=== PATIENT | female | born 1935 | race Caucasian/White ===

== ENCOUNTER 2020-01-12 08:41 | Outpatient (REF) | payer MEDICARE, OTHER, SELFPAY ==
[2020-01-12 10:17] LABS: MANUAL DIFF FLAG NO
[2020-01-12 10:22] LABS: Basophils Percent Auto 0.6 % (0-2); Eosinophils Absolute Auto 0.3 X10*3/uL (0.0-0.4); Eosinophils Percent Auto 5.2 % (0-4); Hemoglobin 12.4 g/dl (12.0-16.0); Imm Gran Abs Auto 0.02 X10*3/uL (0.00-0.03); Imm Gran Pct Auto 0.3 % (0.0-0.4); Lymphocytes Absolute Auto 2.1 X10*3/uL (1.2-4.9); Lymphocytes Percent Auto 32.5 % (20-40); Mean Corpuscular HGB Conc 33.5 g/dl (31.0-35.0); Mean Corpuscular Hemoglobin 31.6 pg (27.0-33.0); Mean Corpuscular Volume 94.4 fL (80-98); Mean Platelet Volume 10.7 fL (9.4-12.3); Monocytes Absolute Auto 0.6 X10*3/uL (0.1-1.2); Monocytes Percent Auto 9.8 % (2-11); Neutrophils Absolute Auto 3.4 X10*3/uL (2.0-8.3); Neutrophils Percent Auto 51.6 % (45-73); Platelet Count 190 X10*3/uL (160-400); Red Blood Count 3.92 X10*6/uL (4.20-5.50); Red Cell Distribution Width 12.1 % (11.0-16.0); White Blood Count 6.5 X10*3/uL (4.8-10.8)
[2020-01-12 10:36] LABS: Estimated Average Glucose 111 mg/dL; Hemoglobin A1c % 5.5 %
[2020-01-12 10:48] LABS: Alanine Aminotransferase 14 U/L (0-31); Albumin Level 4.1 g/dL (3.5-5.0); Alkaline Phosphatase 58 U/L (39-117); Anion Gap 13 (12-20); Aspartate Amino Transferase 14 U/L (5-31); Bilirubin Total 0.8 mg/dL (0.0-1.0); Blood Urea Nitrogen 22 mg/dL (9-16); Calcium 8.9 mg/dL (8.4-10.2); Carbon Dioxide 24 mmol/L (22-29); Chloride 109 mmol/L (96-108); Cholesterol 172 mg/dL; Estimated Glomerular Filt Rate 52; Glucose Fasting 90 mg/dL (60-99); HDL Cholesterol 40 mg/dL; LDL Cholesterol Calculated 84 mg/dl; Potassium 4.6 mmol/l (3.3-5.1); Sodium 141 mmol/L (135-145); Total Protein 6.6 g/dL (6.5-8.0); Triglycerides 241 mg/dL
== END 2020-01-12 08:42 | disposition home or self-care (01) ==
LOC: HO.10HDL 08:41
PROVIDERS: Visit Provider Physician Assistant
DX: E78.2 Mixed hyperlipidemia (principal); I10 Essential (primary) hypertension
CPT/HCPCS: 36415; 80053; 80061; 83036; 84443; 85025

== ENCOUNTER 2020-11-29 08:28 | Outpatient (REF) | payer MEDICARE, OTHER, SELFPAY ==
[2020-11-29 08:56] LABS: Hematocrit 37.7 % (37-47); Hemoglobin 12.7 g/dl (12.0-16.0); Mean Corpuscular HGB Conc 33.7 g/dl (31.0-35.0); Mean Corpuscular Hemoglobin 31.2 pg (27.0-33.0); Mean Corpuscular Volume 92.6 fL (80-98); Platelet Count 186 X10*3/uL (160-400); Red Blood Count 4.07 X10*6/uL (4.20-5.50); Red Cell Distribution Width 12.4 % (11.0-16.0); White Blood Count 6.2 X10*3/uL (4.8-10.8)
[2020-11-29 09:19] LABS: Alanine Aminotransferase 11 U/L (0-31); Albumin Level 4.3 g/dL (3.5-5.0); Alkaline Phosphatase 68 U/L (39-117); Anion Gap 13 (12-20); Aspartate Amino Transferase 13 U/L (5-31); Bilirubin Total 0.8 mg/dL (0.0-1.0); Blood Urea Nitrogen 13 mg/dL (9-16); Calcium 9.8 mg/dL (8.4-10.2); Carbon Dioxide 25 mmol/L (22-29); Chloride 109 mmol/L (96-108); Cholesterol 177 mg/dL; Estimated Glomerular Filt Rate 50; Glucose Fasting 98 mg/dL (60-99); HDL Cholesterol 43 mg/dL; LDL Cholesterol Calculated 99 mg/dl; Potassium 4.4 mmol/L (3.3-5.1); Sodium 143 mmol/L (135-145); Total Protein 7.1 g/dL (6.5-8.0); Triglycerides 176 mg/dL
[2020-11-29 09:39] LABS: TSH reflex Free T4 3.02 uIU/mL (0.32-4.0)
[2020-11-29 18:28] LABS: Creatinine Urine 236.82 mg/dL
== END 2020-11-29 08:29 | disposition home or self-care (01) ==
LOC: HO.LAB 08:28
PROVIDERS: PCP Physician Assistant; Visit Provider Physician Assistant
DX: I10 Essential (primary) hypertension (principal)
CPT/HCPCS: 36415; 80053; 80061; 82043; 84443; 85027

== ENCOUNTER → 2021-02-09 13:36 | Outpatient (REF) | payer MEDICARE, OTHER, SELFPAY ==
--- NOTE | 2021-02-09 13:44 | CA_ITS ---
Transthoracic Echocardiogram Patient (Last, First, Middle): Tatiana Bell G Gender: Female Date of : 1935 Age: 86 Procedure Date: 02/09/2021 Procedure Type: Transthoracic Echocardiogram Location: OP Height: 160.02 cm Weight: 104.33 kg BSA: 2.05 m2 Heart Rate: bpm BP: 122 / 80 mmHg High School History Teacher: COLLIN Polanco MD: Mark Ribeiro PA-C Drafting Engineer: Vernon Schultz MD Symptoms: R01.1 - Cardiac murmur, unspecified Study Quality: Fair ECG Rhythm: Sinus Conclusions: - 1. Normal LV systolic function with impaired relaxation filling pattern 2. Mild aortic regurgitation with fibrocalcific aortic valve changes 3. Normal RVSP 4. No pericardial effusion Findings Left Ventricle Normal left ventricular size, thickness, and systolic function. The visually estimated ejection fraction is between 55-60%. Spectral Doppler is indicative of an impaired relaxation filling pattern. E/E prime ratio is <8, consistent with normal filling pressures. Right Ventricle Normal right ventricular cavity size and systolic function. Atria The left atrium is mildly dilated. Interatrial shunt cannot be excluded. The right atrium is normal in size. Aortic Valve There is mild calcification of the aortic valve. There is mild thickening of the aortic valve. There is no aortic valve stenosis. There is mild aortic valve regurgitation. Mitral Valve There is moderate anterior and posterior mitral leaflet thickening. There is moderate mitral annular calcification. There is trace mitral valve regurgitation. There is no mitral valve stenosis. Pulmonic Valve The pulmonic valve was not well visualized. Tricuspid Valve Likely normal tricuspid valve structure and function. There is trace tricuspid valve regurgitation. The right ventricular systolic pressure is normal. The right ventricular systolic pressure is 16 mmHg. Normal right atrial pressure. There is no evidence of pulmonary hypertension. Great Vessels There is mild dilatation of the ascending aorta measuring 4.00 cm. Venous The inferior vena cava is normal in size and collapses greater than 50% with inspiration. Pericardium/Pleural There is no evidence of pericardial effusion. Prior Study Comparison No previous study in last 5 years for comparison Measurements 2D Linear Measurements IVSd: 1.13 0.6-0.9/0.6-1.0 cm LVIDd: 4.51 3.9-5.3/4.2-5.9 cm LVIDd Index: 2.20 2.4-3.2/2.2-3.1 cm/m2 LVIDs: 3.05 2.0-3.6 cm LVPWd: 1.08 0.7-1.1 cm Ao Root: 3.80 2.1-3.5 cm LA Diam: 3.90 2.7-3.8/3.0-4.0 cm LAIDs Index: 1.90 1.5-2.3 cm/m2 LV Mass: 220.20 67-162/88-224 g LV Mass Index: 107.41 43-95/49-115 g/m2 LVOT Diam: 2.30 3.0+(-)1.3 cm 2D Systolic Function EF 4C: 57.10 >55% EF 2C: 51.40 >55% EF BiP: 55.70 >55% Mitral Valve MV Pk E: 0.55 MV PK A: 0.84 MV Decel Time: 280.00 E/A: 0.70 E'Lateral: 5.77 E'Medial: 4.57 E/E' Med: 12.00 E/E' Lat: 9.50 PHT: 82.00 MVA PHT: 2.68 Decel Vigo: 1.96 Aortic Valve AoV Pk Brandt: 1.72 AoV Mn Brandt: 1.13 AoV VTI: 0.40 AoV Pk Grad: 12.00 Aov Mn Grad: 6.00 PASTORA Cont.VTI: 2.66 AI Pk Brandt: 3.26 AI Vigo: 2.77 LVOT LVOT Pk Brandt: 1.12 LVOT Mn Brandt: 0.80 LVOT VTI: 0.26 LVOT Pk Grad: 5.00 LVOT Mn Grad: 3.00 LVOT Diam: 2.30 LVOT Area: 4.15 Diastolic Function MV Pk E: 0.55 MV Pk A: 0.84 E/A: 0.70 E'Medial: 4.57 E/E' Med: 12.00 E' Laterial: 5.77 E/E' Lat: 9.50 Right Ventricle TAPSE (mm): 2.07 TVS' Brandt: 12.80 Tricuspid Valve TR Pk Brandt: 1.79 TR Pk Grad: 13.00 RA Press: 3.00 RVSP: 16.00 Great Vessels Aorta Ao Root-2D: 3.80 2.0-3.7 cm Ao Asc: 4.00 2.1-3.4 cm Updated in Other Vendor System with Status of Final Vernon Schultz MD electronically signed on 02/09/2021 3:36:40 PM with status of Final
== END ==
LOC: HO.CARD 13:36
PROVIDERS: Visit Provider Physician Assistant
DX: R01.1 Cardiac murmur, unspecified (principal)
CPT/HCPCS: 93306

== ENCOUNTER 2021-05-15 08:37 | Outpatient (REF) | payer MEDICARE, OTHER, SELFPAY ==
[2021-05-15 10:46] LABS: Hematocrit 38.8 % (37.0-47.0); Hemoglobin 12.6 g/dl (12.0-16.0); Mean Corpuscular HGB Conc 32.5 g/dl (31.0-35.0); Mean Corpuscular Volume 95.3 fL (80.0-98.0); Mean Platelet Volume 10.7 fL (9.4-12.3); Platelet Count 182 X10*3/uL (160-400); Red Blood Count 4.07 X10*6/uL (4.20-5.50); Red Cell Distribution Width 12.9 % (11.0-16.0); White Blood Count 6.3 X10*3/uL (4.8-10.8)
[2021-05-15 11:02] LABS: Alanine Aminotransferase 13 U/L (0-31); Albumin Level 4.2 g/dL (3.5-5.0); Alkaline Phosphatase 63 U/L (39-117); Anion Gap 10 (12-20); Aspartate Amino Transferase 10 U/L (5-31); Bilirubin Total 0.6 mg/dL (0.0-1.0); Blood Urea Nitrogen 23 mg/dL (9-16); Calcium 10.1 mg/dL (8.4-10.2); Carbon Dioxide 26 mmol/L (22-29); Chloride 110 mmol/L (96-108); Cholesterol 175 mg/dL; Estimated Glomerular Filt Rate 48; Glucose Fasting 97 mg/dL (60-99); HDL Cholesterol 44 mg/dL; LDL Cholesterol Calculated 94 mg/dl; Potassium 4.4 mmol/L (3.3-5.1); Sodium 142 mmol/L (135-145); Total Protein 6.9 g/dL (6.5-8.0); Triglycerides 187 mg/dL
== END 2021-05-15 08:38 | disposition home or self-care (01) ==
LOC: HO.10HDL 08:37
PROVIDERS: Visit Provider Physician Assistant
DX: I10 Essential (primary) hypertension (principal); E78.2 Mixed hyperlipidemia
CPT/HCPCS: 36415; 80053; 80061; 85027

== ENCOUNTER 2021-05-24 13:08 | Outpatient (REF) | payer MEDICARE, OTHER, SELFPAY ==
--- NOTE | ~2021-05-24 | MM_ITS ---
EXAMINATION: MM SCREENING DIGITAL BREAST TOMOSYNTHESIS, BILATERAL CLINICAL INFORMATION: Screening. Asymptomatic. Age 86. Due for yearly. COMPARISON: Mammography: 01/16/2018, 07/03/2016, 05/16/2015 TECHNIQUE: Digital breast tomosynthesis is performed in both the craniocaudal and mediolateral oblique views along with computer-aided detection (CAD). Synthesized 2D images are generated from the tomosynthesis. FINDINGS: There are scattered areas of fibroglandular density (ACR BI-RADS breast composition Category b). There are no significant masses, abnormal calcifications, or other abnormalities. Parenchymal pattern is similar to prior exams. There are dermal lesions overlying the anterior left breast, upper outer right breast and inferior right breast. MM/MM tomosynthesis screening BI IMPRESSION: No mammographic evidence of malignancy. ASSESSMENT: BI-RADS 2: Benign RECOMMENDATION: Routine annual mammography screening. This patient's information was entered into a reminder system with a target due date for their next mammogram.
== END 2021-05-24 13:09 | disposition home or self-care (01) ==
LOC: HO.MAMMO 13:08
PROVIDERS: Visit Provider Physician Assistant
DX: Z12.31 Encounter for screening mammogram for malignant neoplasm of breast (principal)
CPT/HCPCS: 77063; 77067

== ENCOUNTER 2021-07-14 07:49 | Outpatient (REF) | payer MEDICARE, OTHER, SELFPAY ==
--- NOTE | ~2021-07-14 | XR_ITS ---
EXAMINATION: XR KNEE, BILATERAL XR KNEE, LEFT CLINICAL INFORMATION: Pain COMPARISON: 07/03/2016 TECHNIQUE: AP standing view of both knees. Lateral and sunrise views of the left knee. FINDINGS: Left knee: No fracture or subluxation. There is moderate narrowing of the patellofemoral compartment. Prominent marginal osteophytes of the patellofemoral compartment with small medial compartment osteophytes. No joint effusion. The appearance has progressed from 2017. Right knee: No fracture or subluxation. There is mild medial compartment joint space narrowing. Small marginal osteophytes of the medial and lateral compartments. 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 Mild medial compartment narrowing with osteophytes of the right knee.
--- NOTE | ~2021-07-14 | XR_ITS ---
EXAMINATION: XR KNEE, BILATERAL XR KNEE, LEFT CLINICAL INFORMATION: Pain COMPARISON: 07/03/2016 TECHNIQUE: AP standing view of both knees. Lateral and sunrise views of the left knee. FINDINGS: Left knee: No fracture or subluxation. There is moderate narrowing of the patellofemoral compartment. Prominent marginal osteophytes of the patellofemoral compartment with small medial compartment osteophytes. No joint effusion. The appearance has progressed from 2017. Right knee: No fracture or subluxation. There is mild medial compartment joint space narrowing. Small marginal osteophytes of the medial and lateral compartments. XR/XR knee standing BI IMPRESSION: Moderate degenerative changes of the left knee patellofemoral compartment which have progressed from prior. Mild medial compartment narrowing with osteophytes of the right knee.
== END 2021-07-14 07:50 | disposition home or self-care (01) ==
LOC: HO.HOSX 07:49
PROVIDERS: Visit Provider Orthopaedic Surgery
DX: M17.0 Bilateral primary osteoarthritis of knee (principal)
CPT/HCPCS: 20610; 73560; 73565; 99202; J1100

== ENCOUNTER 2021-09-19 08:44 | Outpatient (REF) | payer MEDICARE, OTHER, SELFPAY | END 2021-09-19 08:45 | disposition home or self-care (01) | LOC: HO.LAB 08:44 | PROVIDERS: Visit Provider Obstetrics & Gynecology | DX: N90.9 Noninflammatory disorder of vulva and perineum, unspecified (principal); Z90.710 Acquired absence of both cervix and uterus | CPT/HCPCS: 56605; 88305; 99202 ==

== ENCOUNTER 2021-10-10 12:21 | Emergency (ER) | payer MEDICARE, OTHER, SELFPAY ==
--- NOTE | ~2021-10-10 | XR_ITS ---
EXAMINATION: XR CHEST CLINICAL INFORMATION: Chest pain radiating to back. COMPARISON: 06/12/2017 chest radiographs. TECHNIQUE: 2 views of the chest were obtained. FINDINGS: The lungs are clear. There are no pleural effusions. The heart and mediastinal structures are unremarkable XR/XR chest 2V IMPRESSION: No acute cardiopulmonary process.
[2021-10-10 12:31] VITALS: BP 152/67; PULSE 65; RESP 18; TEMP 36.9; O2SAT 98; BMI 40.4
--- NOTE | 2021-10-10 12:32 | ECG_ITS ---
Test Reason : CP Blood Pressure : / mmHG Vent. Rate : 062 BPM Atrial Rate : 062 BPM P-R Int : 186 ms QRS Dur : 094 ms QT Int : 406 ms P-R-T Axes : 016 -37 003 degrees QTc Int : 412 ms Normal sinus rhythm with sinus arrhythmia Left axis deviation Moderate voltage criteria for LVH, may be normal variant ( R in aVL , Rick product ) Nonspecific T wave abnormality Abnormal ECG When compared with ECG of 11-JUN-2017 15:52, No significant change was found Referred By: Generic ED Physician Electronically Signed By:CAROL LOVE
[2021-10-10 12:58] VITALS: BP 128/55; PULSE 60; RESP 16; TEMP 36.7; O2SAT 94
[2021-10-10 13:01] LABS: Anion Gap 15 (12-20); Blood Urea Nitrogen 21 mg/dL (9-16); Calcium 9.7 mg/dL (8.4-10.2); Carbon Dioxide 24 mmol/L (22-29); Chloride 108 mmol/L (96-108); Estimated Glomerular Filt Rate 42; Glucose Random 99 mg/dL (60-115); Potassium 4.8 mmol/L (3.3-5.1); Sodium 142 mmol/L (135-145)
[2021-10-10 13:31] LABS: Alanine Aminotransferase 10 U/L (0-31); Alkaline Phosphatase 61 U/L (39-117); Aspartate Amino Transferase 12 U/L (5-31); Bilirubin Direct 0.3 mg/dL (0.0-0.5); Bilirubin Total 0.8 mg/dL (0.0-1.0); Lipase 34 U/L (8-78); Magnesium 2.2 mg/dL (1.6-2.6); Total Protein 6.8 g/dL (6.5-8.0)
[2021-10-10 13:34] LABS: B Type Natriuretic Peptide 75 pg/mL (<100)
--- NOTE | 2021-10-10 14:36 | ED.CHESTPAIN ---
HPI - Chest Pain General Chief Complaint: Chest Pain Stated Complaint: chest pains/back pain high BP Time Seen by Provider: 10/10/21 12:55 Source: patient Mode of arrival: ambulatory History of Present Illness HPI narrative: 86-year-old female with a past medical history of HTN, HLD, COPD, cardiac murmur, obesity, osteoarthritis, presenting to ED from OBGYN office complaining of intermittent substernal chest pain radiating to back, LUE and jaw since yesterday. States pain has mildly improved since onset, now more localized to back. Denies SOB, worsening pedal edema, headache, lightheadedness/dizziness, cough, fever, nausea/vomiting MD complaint: chest pain Related Data Home Medications Medication Instructions Recorded Confirmed aspirin 81 mg tablet,delayed 81 mg PO DAILY 09/19/21 release Previous Rx's Medication Instructions Recorded metoprolol succinate 50 mg 50 mg PO DAILY 90 days #90 tabs 01/17/21 tablet,extended release 24 hr lisinopril 40 mg tablet 40 mg PO DAILY #90 tabs 01/18/21 montelukast 10 mg tablet 10 mg PO DAILY #90 tabs 01/18/21 Allergies Allergy/AdvReac Type Severity Reaction Status Date / Time No Known Allergies Allergy Verified 09/19/21 08:20 [No Known Allergies*] Review of Systems Review of Systems: Constitutional: No Fever, No Chills, No Fatigue, No Malaise ENT/Mouth: No Ear Pain, No Nasal Congestion, No sore throat, No Rhinorrhea, No Swallowing Difficulty Eyes: No Eye Pain, No Swelling, No Redness, No Vision Changes Cardiovascular: + Chest Pain, No SOB, No Dyspnea on Exertion, No Edema Respiratory: No Cough, No Sputum, No Dyspnea Gastrointestinal: No Nausea, No Vomiting, No Diarrhea, No Constipation, No Abdominal pain Genitourinary: No Dysuria, No Urinary Frequency, No Hematuria, No Urinary Incontinence/retention, No Flank Pain Musculoskeletal: No joint pain, No Myalgias, No Joint Swelling Skin: No Skin Lesions, No rash Neuro: No Weakness, No Numbness, No Paresthesias, No Loss of Consciousness, No Dizziness, No Headache Yes all other systems are reviewed and are negative Constitutional: Constitutional: Reports as per [facility] Past Medical History Attestation statement: The following information was validated with the patient. Medical History Cardiac murmur Left pulmonary infiltrate on CXR Obesity (BMI 30-39.9) Surgical History H/O hysterectomy for benign disease History of arthroscopic knee surgery Family History Family History Father No problems noted. Mother Cancer Social History Social History Housing: House Alcohol intake: never Patient Tobacco Use Status: Never used Tobacco e-Cigarette/Vaping Use: Never Used Second Hand Smoke Exposure: No Use of substances other than those prescribed or required for medical reasons: No Advance Directives: No Advance Directives Information Provided: Yes service: No Current occupational status: retired Cognitive needs: No Hearing needs: No Vision needs: No Physical Exam Vital Signs: Vital Signs: Last Vital Signs Temp 97.8 F 10/10/21 15:12 Pulse 59 10/10/21 15:12 Resp 18 10/10/21 15:12 BP 154/60 H 10/10/21 15:12 Pulse Ox 96 10/10/21 15:12 O2 Del Method 10/10/21 15:12 BMI result Body Mass Index 40.4 Const: General: cooperative, healthy appearing and no acute distress Orientation/consciousness: patient oriented x3 Limitations: no limitations HEENT: Head: Yes normal to inspection and Yes atraumatic Ears: hearing grossly normal bilaterally General nose exam: Normal external nose present Face and sinus: Yes normal facial exam Eyes: General: appearance normal, both eyes and all related structures EOM: EOMs intact bilaterally Neck: Neck: Yes normal visual inspection and Yes no meningeal signs Resp: Effort & Inspection: normal respiratory effort and no respiratory distress Auscultation: clear to auscultation bilaterally, no crackles, no rales, no rhonchi and no wheezes Cardio: Rate: regular rate Heart sounds: S1 normal heart sound present and S2 normal heart sound present GI: Inspection: Yes normal to inspection Palpation (GI): Soft to palpation, nontender, no guarding and not rigid : General: Yes no CVA tenderness Back/Spine/Pelvis: Back: no CVA tenderness Skin: Rashes: no rashes Wounds: no wounds Neuro: General: patient oriented x3, gait normal, tone normal, moves all extremities and no meningeal signs Gait exam (Neuro): Normal gait present Extrem: Other: 1+ bilateral LE chronic pitting edema General: Yes no calf tenderness Course Course Course Narrative: -BUN chronically elevated. Initial troponin 4.0 > will obtain 3hr repeat. Remaining labs hemolyzed -1641--no leukocytosis. Repeat troponin without 50% rise > TX unlikely XR chest 2V IMPRESSION: No acute cardiopulmonary process. Results discussed with patient including worrisome signs and symptoms and strict return precautions, and when to return to the emergency department. They verbalized understanding and feel safe for discharge at this time. MDM - Chest Pain MDM Narrative Medical decision making narrative: 86-year-old female with a past medical history of HTN, HLD, COPD, cardiac murmur, obesity, osteoarthritis, presenting to ED from OBGYN office complaining of intermittent substernal chest pain radiating to back, LUE and jaw since yesterday. On exam vital signs stable, NAD, nontoxic appearing, lungs CTA, 1+ bilateral LE edema. Concern for ACS vs CHF. Symptoms atypical for PE. Symptoms atypical for dissection/AAA being intermittent in nature Plan: EKG, labs, CXR, reassess Differential Diagnosis Differential diagnosis: Likely stable angina, unstable angina pectoris, atypical chest pain, costochondritis and chest pain Medical Records Data Attestation: I reviewed the patient's medical records. Lab Data Attestation: I reviewed the patient's lab results. Result diagrams: 10/10/21 16:03 10/10/21 12:40 Labs: Lab Results 10/10/21 10/10/21 10/10/21 Range/Units 12:40 12:40 16:03 WBC 7.6 (4.8-10.8) X10*3/uL RBC 4.38 (4.20-5.50) X10*6/uL Hgb 13.6 (12.0-16.0) g/dl Hct 40.4 (37.0-47.0) % MCV 92.2 (80.0-98.0) fL MCH 31.1 (27.0-33.0) pg MCHC 33.7 (31.0-35.0) g/dl RDW 12.7 (11.0-16.0) % Plt Count 179 (160-400) X10*3/uL MPV 9.8 (9.4-12.3) fL Immature Gran % (Auto) 0.4 (0.0-0.4) % Neut % (Auto) 53.1 (45-73) % Lymph % (Auto) 31.4 (20-40) % [place] % (Auto) 9.2 (2-11) % Eos % (Auto) 5.4 H (0-4) % Baso % (Auto) 0.5 (0-2) % Lymph # (Auto) 2.4 (1.2-4.9) X10*3/uL [place] # (Auto) 0.7 (0.1-1.2) X10*3/uL Eos # (Auto) 0.4 (0.0-0.4) X10*3/uL Baso # (Auto) 0.0 (0.0-0.2) X10*3/uL Abs Immat Gran (auto) 0.03 (0.00-0.03) X10*3/uL Absolute Neuts (auto) 4.1 (2.0-8.3) x10*3/uL Absolute Nucleated RBC 0.000 (0.0-0.012) X10*3/uL Nucleated RBC % (auto) 0.0 (0.0-0.2) /100WBC Sodium 142 (135-145) mmol/L Potassium 4.8 (3.3-5.1) mmol/L Chloride 108 (96-108) mmol/L Carbon Dioxide 24 (22-29) mmol/L Anion Gap 15 (12-20) BUN 21 H (9-16) mg/dL Creatinine 1.21 (0.5-1.4) mg/dL Estim Creat Clear Calc 39.0 Estimated GFR 42 Random Glucose 99 (60-115) mg/dL Calcium 9.7 (8.4-10.2) mg/dL Magnesium 2.2 (1.6-2.6) mg/dL Total Bilirubin 0.8 (0.0-1.0) mg/dL Direct Bilirubin 0.3 (0.0-0.5) mg/dL AST 12 (5-31) U/L ALT 10 (0-31) U/L Alkaline Phosphatase 61 (39-117) U/L Troponin I High Sens 4.0 (<3.5-17.0) ng/L B-Natriuretic Peptide 75 (<100) pg/mL Total Protein 6.8 (6.5-8.0) g/dL Albumin 4.0 (3.5-5.0) g/dL Lipase 34 (8-78) U/L 10/10/ Range/Units 16:03 WBC (4.8-10.8) X10*3/uL RBC (4.20-5.50) X10*6/uL Hgb (12.0-16.0) g/dl Hct (37.0-47.0) % MCV (80.0-98.0) fL MCH (27.0-33.0) pg MCHC (31.0-35.0) g/dl RDW (11.0-16.0) % Plt Count (160-400) X10*3/uL MPV (9.4-12.3) fL Immature Gran % (Auto) (0.0-0.4) % Neut % (Auto) (45-73) % Lymph % (Auto) (20-40) % [place] % (Auto) (2-11) % Eos % (Auto) (0-4) % Baso % (Auto) (0-2) % Lymph # (Auto) (1.2-4.9) X10*3/uL [place] # (Auto) (0.1-1.2) X10*3/uL Eos # (Auto) (0.0-0.4) X10*3/uL Baso # (Auto) (0.0-0.2) X10*3/uL Abs Immat Gran (auto) (0.00-0.03) X10*3/uL Absolute Neuts (auto) (2.0-8.3) x10*3/uL Absolute Nucleated RBC (0.0-0.012) X10*3/uL Nucleated RBC % (auto) (0.0-0.2) /100WBC Sodium (135-145) mmol/L Potassium (3.3-5.1) mmol/L Chloride (96-108) mmol/L Carbon Dioxide (22-29) mmol/L Anion Gap (12-20) BUN (9-16) mg/dL Creatinine (0.5-1.4) mg/dL Estim Creat Clear Calc Estimated GFR Random Glucose (60-115) mg/dL Calcium (8.4-10.2) mg/dL Magnesium (1.6-2.6) mg/dL Total Bilirubin (0.0-1.0) mg/dL Direct Bilirubin (0.0-0.5) mg/dL AST (5-31) U/L ALT (0-31) U/L Alkaline Phosphatase (39-117) U/L Troponin I High Sens 5.0 (<3.5-17.0) ng/L B-Natriuretic Peptide (<100) pg/mL Total Protein (6.5-8.0) g/dL Albumin (3.5-5.0) g/dL Lipase (8-78) U/L Discharge Plan Discharge Clinical Impression: Chest pain Patient Disposition: Home, Self-Care Instructions: Chest Pain (DC) Additional Instructions: Your blood work was reassuring today in the emergency department. Chest x-ray was unremarkable. Is important for you to follow-up with her primary care doctor and Cardiology. If her symptoms persist or worsen, pain becomes more constant, you have shortness of breath, swelling in her legs please return to the emergency department Prescriptions: No Action metoprolol succinate 50 mg tablet extended release 24 hr 50 mg PO DAILY 90 Days Qty: 90 3RF montelukast 10 mg tablet 10 mg PO DAILY Qty: 90 3RF lisinopril 40 mg tablet 40 mg PO DAILY Qty: 90 3RF aspirin 81 mg tablet,delayed release (DR/EC) 81 mg PO DAILY Referrals: Vernon Schultz MD [Physician] - 1 week Mark Ribeiro PA-C [Primary Care Provider] - 2 days
[2021-10-10 15:12] VITALS: BP 154/60; PULSE 59; RESP 18; TEMP 36.6; O2SAT 96
[2021-10-10 16:07] LABS: Basophils Percent Auto 0.5 % (0-2); Eosinophils Absolute Auto 0.4 X10*3/uL (0.0-0.4); Eosinophils Percent Auto 5.4 % (0-4); Hematocrit 40.4 % (37.0-47.0); Hemoglobin 13.6 g/dl (12.0-16.0); Imm Gran Abs Auto 0.03 X10*3/uL (0.00-0.03); Imm Gran Pct Auto 0.4 % (0.0-0.4); Lymphocytes Absolute Auto 2.4 X10*3/uL (1.2-4.9); Lymphocytes Percent Auto 31.4 % (20-40); Mean Corpuscular HGB Conc 33.7 g/dl (31.0-35.0); Mean Corpuscular Hemoglobin 31.1 pg (27.0-33.0); Mean Corpuscular Volume 92.2 fL (80.0-98.0); Mean Platelet Volume 9.8 fL (9.4-12.3); Monocytes Absolute Auto 0.7 X10*3/uL (0.1-1.2); Monocytes Percent Auto 9.2 % (2-11); Neutrophils Absolute Auto 4.1 x10*3/uL (2.0-8.3); Neutrophils Percent Auto 53.1 % (45-73); Platelet Count 179 X10*3/uL (160-400); Red Blood Count 4.38 X10*6/uL (4.20-5.50); Red Cell Distribution Width 12.7 % (11.0-16.0); White Blood Count 7.6 X10*3/uL (4.8-10.8)
[2021-10-10 16:11] LABS: MANUAL DIFF FLAG NO
== END 2021-10-10 16:54 | disposition home or self-care (01) ==
PROVIDERS: Physician Assistant; Emergency Provider Emergency Medicine; PCP Physician Assistant
DX: R07.9 Chest pain, unspecified (principal); R60.0 Localized edema; I10 Essential (primary) hypertension; E78.5 Hyperlipidemia, unspecified; E66.9 Obesity, unspecified; Z68.41 Body mass index [BMI] 40.0-44.9, adult; Z79.899 Other long term (current) drug therapy; Z79.82 Long term (current) use of aspirin
CPT/HCPCS: 36415; 71046; 80048; 80076; 83690; 83735; 83880; 84484; 85025; 93005; 99212; 99283; 99285

== ENCOUNTER 2021-12-06 09:31 | Outpatient (REF) | payer MEDICARE, OTHER, SELFPAY ==
--- NOTE | ~2021-12-06 | FL_ITS ---
EXAMINATION: FL BARIUM SWALLOW CLINICAL INFORMATION: Dysphagia COMPARISON: None TECHNIQUE: Barium swallow examination is performed using fluoroscopic evaluation in addition to multiple fluoroscopic spot views. The patient is imaged both upright and prone and using both thick and thin sulfate along with effervescent granules. Fluoroscopy time: 2.6 minutes DAP: 22.064 Gycm2 Images: 25 FINDINGS: The patient initiated swallowing normally. The cervical esophagus is normal. No fixed esophageal mucosal narrowing seen to suggest a stricture or mass. However, there is ineffective primary peristalsis with to-and-fro tertiary contractions. Emptying the esophagus required multiple additional swallows. Visualized stomach is normal in appearance. No hiatal hernia seen. There is reflux into the upper esophagus with rolling. FL/FL barium swallow IMPRESSION: Ineffective primary peristalsis with to-and-fro tertiary contractions which may reflect presbyesophagus. No fixed esophageal mucosal abnormality to suggest fracture or mass. Reflux into the upper esophagus with rolling.
== END 2021-12-06 09:32 | disposition home or self-care (01) ==
LOC: HO.XRAY 09:31
PROVIDERS: Visit Provider Internal Medicine
DX: R13.10 Dysphagia, unspecified (principal)
CPT/HCPCS: 74220

== ENCOUNTER 2022-01-01 07:56 | Outpatient (REF) | payer MEDICARE, OTHER, SELFPAY ==
[2022-01-01 08:25] LABS: Hematocrit 38.7 % (37.0-47.0); Mean Corpuscular HGB Conc 33.6 g/dl (31.0-35.0); Mean Corpuscular Hemoglobin 31.3 pg (27.0-33.0); Mean Platelet Volume 9.7 fL (9.4-12.3); Platelet Count 175 X10*3/uL (160-400); Red Blood Count 4.16 X10*6/uL (4.20-5.50); Red Cell Distribution Width 12.7 % (11.0-16.0); White Blood Count 8.5 X10*3/uL (4.8-10.8)
[2022-01-01 09:23] LABS: Alanine Aminotransferase 9 U/L (0-31); Albumin Level 4.1 g/dL (3.5-5.0); Alkaline Phosphatase 70 U/L (39-117); Anion Gap 14 (12-20); Aspartate Amino Transferase 10 U/L (5-31); Bilirubin Total 0.9 mg/dL (0.0-1.0); Blood Urea Nitrogen 19 mg/dL (9-16); Calcium 9.9 mg/dL (8.4-10.2); Carbon Dioxide 25 mmol/L (22-29); Chloride 107 mmol/L (96-108); Cholesterol 228 mg/dL; Estimated Glomerular Filt Rate 50; Glucose Fasting 99 mg/dL (60-99); HDL Cholesterol 44 mg/dL; LDL Cholesterol Calculated 140 mg/dl; Sodium 142 mmol/L (135-145); Total Protein 6.8 g/dL (6.5-8.0); Triglycerides 222 mg/dL
[2022-01-01 09:43] LABS: TSH reflex Free T4 3.07 uIU/mL (0.32-4.0)
== END 2022-01-01 07:57 | disposition home or self-care (01) ==
LOC: HO.LAB 07:56
PROVIDERS: PCP Physician Assistant; Visit Provider Physician Assistant
DX: E78.2 Mixed hyperlipidemia (principal)
CPT/HCPCS: 36415; 80053; 80061; 84443; 85027

== ENCOUNTER 2022-05-23 08:36 | Outpatient (REF) | payer MEDICARE, OTHER, SELFPAY ==
[2022-05-23 09:04] LABS: Hematocrit 37.7 % (37.0-47.0); Hemoglobin 12.8 g/dl (12.0-16.0); Mean Corpuscular Hemoglobin 31.6 pg (27.0-33.0); Mean Corpuscular Volume 93.1 fL (80.0-98.0); Platelet Count 191 X10*3/uL (160-400); Red Blood Count 4.05 X10*6/uL (4.20-5.50); Red Cell Distribution Width 13.2 % (11.0-16.0); White Blood Count 6.3 X10*3/uL (4.8-10.8)
[2022-05-23 09:46] LABS: Alanine Aminotransferase 13 U/L (0-31); Alkaline Phosphatase 65 U/L (39-117); Anion Gap 11 (12-20); Aspartate Amino Transferase 14 U/L (5-31); Blood Urea Nitrogen 16 mg/dL (9-16); Calcium 9.8 mg/dL (8.4-10.2); Carbon Dioxide 26 mmol/L (22-29); Chloride 109 mmol/L (96-108); Cholesterol 269 mg/dL; Estimated Glomerular Filt Rate 52; Glucose Fasting 92 mg/dL (60-99); HDL Cholesterol 43 mg/dL; LDL Cholesterol Calculated 181 mg/dl; Potassium 4.5 mmol/L (3.3-5.1); Sodium 141 mmol/L (135-145); Total Protein 6.5 g/dL (6.5-8.0); Triglycerides 225 mg/dL
[2022-05-23 09:51] LABS: TSH reflex Free T4 4.25 uIU/mL (0.32-4.0)
[2022-05-23 10:43] LABS: Creatinine Urine 106.12 mg/dL; Microalbum/Creatinine Ratio Ur 5.6 ug/mg cr
== END 2022-05-23 08:37 | disposition home or self-care (01) ==
LOC: HO.LAB 08:36
PROVIDERS: PCP Physician Assistant; Visit Provider Physician Assistant
DX: I10 Essential (primary) hypertension (principal); E78.2 Mixed hyperlipidemia; E66.01 Morbid (severe) obesity due to excess calories; Z68.41 Body mass index [BMI] 40.0-44.9, adult
CPT/HCPCS: 36415; 80053; 80061; 82043; 84439; 84443; 85027

== ENCOUNTER 2022-08-20 08:48 | Outpatient (REF) | payer MEDICARE, OTHER, SELFPAY | END 2022-08-20 08:49 | disposition home or self-care (01) | LOC: HO.MAMMO 08:48 | PROVIDERS: PCP Physician Assistant; Visit Provider Physician Assistant | DX: Z12.31 Encounter for screening mammogram for malignant neoplasm of breast (principal) | CPT/HCPCS: 77063; 77067 ==

== ENCOUNTER → 2022-08-20 09:15 | Outpatient (BNV) | payer MEDICARE, OTHER, SELFPAY | PROVIDERS: PCP Physician Assistant; Visit Provider Radiology Diagnostic Radiology | DX: Z12.31 Encounter for screening mammogram for malignant neoplasm of breast (principal) | CPT/HCPCS: 77063; 77067 ==

== ENCOUNTER 2022-12-04 08:00 | Outpatient (REF) | payer MEDICARE, OTHER, SELFPAY ==
[2022-12-04 09:02] LABS: Hematocrit 37.5 % (37.0-47.0); Hemoglobin 12.5 g/dl (12.0-16.0); Mean Corpuscular HGB Conc 33.3 g/dl (31.0-35.0); Mean Corpuscular Hemoglobin 31.6 pg (27.0-33.0); Mean Corpuscular Volume 94.7 fL (80.0-98.0); Mean Platelet Volume 10.1 fL (9.4-12.3); Platelet Count 183 X10*3/uL (160-400); Red Blood Count 3.96 X10*6/uL (4.20-5.50); White Blood Count 6.5 X10*3/uL (4.8-10.8)
[2022-12-04 09:43] LABS: Alanine Aminotransferase 12 U/L (0-31); Albumin Level 3.9 g/dL (3.5-5.0); Alkaline Phosphatase 61 U/L (39-117); Anion Gap 14 (12-20); Aspartate Amino Transferase 14 U/L (5-31); Bilirubin Total 0.6 mg/dL (0.0-1.0); Blood Urea Nitrogen 26 mg/dL (9-16); Calcium 9.9 mg/dL (8.4-10.2); Carbon Dioxide 22 mmol/L (22-29); Chloride 111 mmol/L (96-108); Cholesterol 166 mg/dL (<200); Estimated Glomerular Filt Rate 41; Glucose Fasting 96 mg/dL (60-99); HDL Cholesterol 39 mg/dL (>40); LDL Cholesterol Calculated 105 mg/dL (<100); Potassium 4.5 mmol/L (3.3-5.1); Sodium 142 mmol/L (135-145); Total Protein 6.7 g/dL (6.5-8.0); Triglycerides 112 mg/dL (<150)
[2022-12-04 10:20] LABS: Creatinine Urine 111.58 mg/dL; Microalbumin Urine < 5.0 mg/L
== END 2022-12-04 08:01 | disposition home or self-care (01) ==
LOC: HO.LAB 08:00
PROVIDERS: PCP Physician Assistant; Visit Provider Physician Assistant
DX: I10 Essential (primary) hypertension (principal); E78.2 Mixed hyperlipidemia
CPT/HCPCS: 36415; 80053; 80061; 82043; 82570; 85027

== ENCOUNTER 2022-12-26 09:35 | Outpatient (REF) | payer MEDICARE, OTHER, SELFPAY ==
[2022-12-26 11:38] LABS: Appearance Urine Cloudy; Color Urine Yellow; Glucose Urine UA Negative (Negative); Leukocyte Esterase Urine Large (3+) (Negative); Nitrite Urine Positive (Negative); PH 7.5 (5.0-9.0); UMIC TRIGGER UACC YES; Urine Blood Trace (Negative); Urine Ketones Negative (Negative); Urine Protein 30 (1+) mg/dL (Neg-Trace)
[2022-12-26 11:40] LABS: Bacteria Urine 4+ (None Seen); Hyaline Casts Urine 0-2 /LPF (0-2); UACC Culture Trigger YES; WBC Urine >50 /HPF (0-5)
== END 2022-12-26 09:36 | disposition home or self-care (01) ==
LOC: HO.LAB 09:35
PROVIDERS: PCP Physician Assistant; Visit Provider Physician Assistant
DX: R30.0 Dysuria (principal)
CPT/HCPCS: 81001; 87086; 87088; 87186

== ENCOUNTER 2023-05-30 11:23 | Outpatient (AMB) | payer MEDICARE, OTHER, SELFPAY ==
[2023-05-30 11:25] VITALS: BP 134/64; PULSE 60; O2SAT 95; BMI 40.1
--- NOTE | 2023-05-30 11:25 | MHC.PC.OV ---
Vital Signs 05/30/23 11:25 Height 5 ft 3 in Blood Pressure Location Lt brachial Position Sitting Pulse Source Pulse Oximeter Oxygen Delivery Method Room Air Intake Visit Reasons: AWV Intake Note: Patient is here for an Annual Wellness Visit. 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 Mother Cancer Social History Housing: House Alcohol intake: never Patient Tobacco Use Status: Never used Tobacco e-Cigarette/Vaping Use: Never Used Second Hand Smoke Exposure: No service: No Current occupational status: retired Cognitive needs: No Hearing needs: No Vision needs: Yes (Glasses) Questionnaire Thrive Questionnaire Date Thrive assessed: 05/22/22 ALONZO-7 AMB Questionnaire ALONZO-7 Date ALONZO - 7 assessed: 05/22/22 Source: Developed by Drs. Cody Nicoel, Tati Lawler, Star Plascencia and colleagues, with an educational david from [email or web address]. Physical exam (Primary Care) Tobacco/Smoking Status: Tobacco use Status Tobacco use date assessed 05/22/22 05/22/22 14:06 Patient Tobacco Use Status Never used Tobacco 05/22/22 14:06 e-Cigarette/Vaping Use Never Used 05/22/22 14:06 Thrive Assessment: Date of Thrive Assessment Date Thrive assessed 05/22/22 05/22/22 14:06 Coding
--- NOTE | 2023-05-30 11:32 | AM.OFFVISMDC ---
Intake Vital Signs 05/30/23 11:25 Height 5 ft 1 in Weight 212 lb 8 oz BMI 40.1 BP 134/64 Blood Pressure Location Lt brachial Position Sitting Pulse 60 Pulse Source Pulse Oximeter Pulse Oximetry (%) 95 Oxygen Delivery Method Room Air Intake Visit Reasons: AWV Intake Note: The patient is here for their annual wellness visit and is requesting a neurology referral due to experiencing numbness in both hands for the past two years. 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 Patient has a past medical history significant osteoarthritis, COPD, hyperlipidemia and hypertension, macular degen . Today we discussed her [place] of care and end of life planning. She is concerned about bilateral upper extremity numbness that she attributes to getting from a COVID vaccine. She also reports a pain in her right lateral neck when she yawns. She is concerned about a vascular issue. Interestingly enough she does have a small bruit in her right carotid exam Breast cancer screening: Still gets mammograms, have been normal for while Postmenopausal--> interested in getting bone density Laboratory Tests 12/04/22 08:32 RBC 3.96 L Hgb 12.5 Creatinine 1.24 Cholesterol 166 LDL Cholesterol, C alc 105 H HPI Comments History of Present Illness Details reviewed past medical history- yes reviewed surgical / hospitalization history- yes reviewed current medications- yes reviewed family history- yes home safety throw rugs? grab bars? raised toilet seat? working smoke detectors? activities of daily living difficulty bathing or showering? difficulty dressing? difficulty using the toilet? difficulty getting in and out of bed? difficulty walking? receives help from other person's with any of the above tasks? instrumental activities of daily living uses telephone - gets to place out of walking distance- go shopping for groceries- repairs own meals- does own minor home maintenance- does own laundry- does own housework- manages own money- currently takes medication- end of life planning discussed advanced directives- yes advanced directives on file? discussed wishes expressed in advanced directives. fall risk have you had any falls with injuries in the past year? have you had 2 or more falls in the past year? fall risk assessment: [facility] Medical History Cardiac murmur Left pulmonary infiltrate on CXR Obesity (BMI 30-39.9) Surgical History H/O hysterectomy for benign disease History of arthroscopic knee surgery Family History Father No problems noted. Mother Cancer Social History Housing: House Alcohol intake: never Patient Tobacco Use Status: Never used Tobacco e-Cigarette/Vaping Use: Never Used Second Hand Smoke Exposure: No service: No Current occupational status: retired Cognitive needs: No Hearing needs: No Vision needs: Yes (Glasses) Questionnaire Medicare Wellness Checkup What is your age?: 80 or older What gender do you identify with?: female During the past 4 weeks, how much have you been bothered by emotional problems such as feeling anxious, depressed, irritable, sad or downhearted, and blue?: not at all During the past 4 weeks, has your physical & emotional health limited your social activities with family, friends, neighbors, or groups?: not at all During the past 4 weeks, how much bodily pain have you generally had?: moderate pain During the past 4 weeks, was someone available to help you if you needed & wanted help?: no, not at all During the past 4 weeks, what was the hardest physical activity you could do for at least 2 minutes?: moderate Can you get to places out of walking distance without help? (For eg., can you travel alone on buses, taxis or drive your car?): Yes Can you go shopping for groceries or clothes without someone's help?: Yes Can you prepare your own meals?: Yes Can you do your housework without help?: Yes Because of any health problems, do you need the help of another person with your personal care needs such as eating, bathing, dressing or getting around the house?: No Can you handle your own money without help?: Yes During the past 4 weeks, how would you rate your health in general?: good During the past 4 weeks how have things been going for you?: pretty well Are you having difficulties driving your car?: no Do you always fasten your seat belt when you are in a car?: yes, usually During past 4 weeks, have you been bothered by the following: never: Falling or dizzy when standing up, Sexual problems?, Trouble eating well?, Problems using the telephone? and Tiredness or fatigue? and seldom: Teeth or denture problems? Have you fallen 2 or more times in the past year?: Yes Are you afraid of falling?: Yes Are you a smoker?: no During the past 4 weeks, how many drinks of wine, beer, or other alcoholic beverages did you have?: no alcohol at all Do you exercise for about 20 minutes 3 or more times a week?: yes, all the time Have you been given information to help with the following?: yes: Hazards in your house that might hurt you? and yes: Keeping track of your medications? How often do you have trouble taking medicines the way you have been told to take them?: I always take medicine as prescribed How confident are you that you can control & manage most of your health problems?: very confident What is your race?: White Mini Mental State Exam (MMSE) Orientation What is the (year) (season) (date) (day) (month)?: year Where are we (state) (county) (town or city) (hospital) (floor)?: state and town or city Attention & Calculation (CHOOSE ONE) Ask pt to begin with 100 & count backward by 7. Stop after 5 repeats. If pt cannot ask them to spell the word WORLD backward.: 72 Spell WORLD backwards (DLROW): 3 letters Score Score: 7 Activity of Daily Living Bathing - sponge bath, tub bath or shower: receives no assistance (gets in/out by self, if usual bathing means Dressing - getting clothes from closets & drawers, including inner/outer garments & fasteners.: gets clothes & gets completely dressed without help Toileting - going to the 'toilet room' for urine/bowel elimination & cleaning self/arranging clothes: goes to toilet room, cleans self, arranges clothes without help Transfer: moves in & out of bed and chair without help (may use support object) Continence: controls urination/bowel movements completely by self Feeding: feeds self without help Total Score: 0 Information obtained from: patient Using telephone: independent Traveling: independent Shopping: independent Preparing meals: independent Housework: independent Taking medicine: independent Managing money: independent PHQ-9 Over the last 2 weeks, how often have you been bothered by any of the following problems? 1. Little interest or pleasure in doing things: not at all 2. Feeling down, depressed, or hopeless: not at all 3. Trouble falling or staying asleep, or sleeping too much: not at all 4. Feeling tired or having little energy: not at all 5. Poor appetite or overeating: not at all 6. Feeling bad about yourself - or that you are a failure or have let yourself or your family down: not at all 7. Trouble concentrating on things, such as reading the newspaper or watching television: not at all 8. Moving or speaking so slowly that other people could have noticed. Or the opposite - being so fidgety or restless that you have been moving around a lot more than usual: not at all 9. Thoughts that you would be better off or of hurting yourself in some way: not at all Total score: 0 Depression Screening Interpretation: Negative Depression Screening Done: Yes 06172 - PHQ-9 Billing: Yes Source: Developed by Drs. Cody Nicole, Tati Lawler, Star Plascencia and colleagues, with an educational david from [employer]. Thrive Questionnaire Date Thrive assessed: 05/30/23 I am a: Patient What is your living situation today?: I have a steady place to live Within the past 12 months, did the food you bought not last and you didn't have the money to get more?: Never true Within the past 12 months, did you worry whether your food would run out before you got money to buy more?: Never true Do you have trouble paying for medicines?: No Do you have trouble getting transportation to medical appointments?: No Do you have trouble paying your heating and electricity bill?: No Do you have trouble taking care of your child, family member or friend?: No Do you have trouble with day-to-day activities such as bathing, preparing meals, shopping, managing finances, etc.?: No Are you currently unemployed and looking for a job?: No Are you interested in more education?: No Please select the resources that you would like help with: None Currently or been in a relationship where the following occur: no concerns reported THRIVE Score: 0 ALONZO-7 AMB Questionnaire ALONZO-7 Date ALONZO - 7 assessed: 05/30/23 Feeling nervous, anxious, or on edge: 0 = Not at all Not being able to stop or control worryin = Not at all Worrying too much about different things: 0 = Not at all Trouble relaxin = Not at all Being so restless that it is hard to sit still: 0 = Not at all Becoming easily annoyed or irritable: 0 = Not at all Feeling afraid as if something awful might happen: 0 = Not at all Total ALONZO-7 score (0-4 normal; 5-9 mild; 10-14 moderate; 15-21 severe): 0 Source: Developed by Drs. Cody Nicole, Tati Lawler, Star Plascencia and colleagues, with an educational david from [employer]. ALONZO-7 Assessment Billing ALONZO-7 Assessment Tool: ALONZO-7 Assessment 96822 Physical Exam Vital Signs: Last Vital Signs Pulse 60 05/30/23 11:25 BP 134/64 05/30/23 11:25 Pulse Ox 95 05/30/23 11:25 Oxygen Delivery Method Room Air 05/30/23 11:25 BMI result Body Mass Index 40.1 HEENT Other: hearing screening whisper test- pass Eyes Other: vision screening- wearing corrective lenses Cardio Bruits: carotid bruit on the right Other: urinary incontinence? no Neuro Other: balance Romberg- normal tandem walk test- able walk-in turned test- able rise from sit to stand- within 2 seconds Assessment & Plan Assessment & Plan (1) Encounter for annual wellness visit (AWV) in Medicare patient: Code(s): Z00.00 - Encounter for general adult medical examination without abnormal findings (2) Paresthesia of both hands: Code(s): R20.2 - Paresthesia of skin Plan: Patient reporting bilateral hand numbness for the last 2 years. She attributes this to getting the 2nd COVID vaccine. Will send for EMG testing to evaluate for neuropathy in her upper extremities. She is requesting to see a neurologist (3) Post-menopausal: Code(s): Z78.0 - Asymptomatic menopausal state Plan: Willing to get bone density screening (4) Right carotid bruit: Code(s): R09.89 - Other specified symptoms and signs involving the circulatory and respiratory systems Plan: Noted a possible right carotid bruit on physical exam, could be referred sound from her murmur. Will order ultrasound to evaluate for any carotid stenosis Plan As above Orders: Orders XR DEXA axial skeleton Today Z78.0 - Asymptomatic menopausal state Microalbumin, Random (w Creat) Today I10 - Essential (primary) hypertension Comprehensive [place]. Panel Fast Today E78.2 - Mixed hyperlipidemia Lipid Panel Today E78.2 - Mixed hyperlipidemia US carotid duplex RT Today R09.89 - Other specified symptoms and signs involving the circulatory and respiratory systems XR cervical spine 4V Today R20.2 - Paresthesia of skin Referrals Neurology Referral R20.2 - Paresthesia of skin Quality Reporting (2019) Depression/Bipolar (159/160/161/177) PHQ-9: Total score: 0 Coding Level of Care Code Medicare First (G0438) Est Pt Level 4 (30455) Diagnoses Encounter for annual wellness visit (AWV) in Medicare patient Z00.00 Paresthesia of both hands R20.2 Post-menopausal Z78.0 Right carotid bruit R09.89 CPT Codes Advance Care Planning - Time spent: 1-15 minutes, not on file ([id number]) Additional Codes ALONZO-7 Assessment Billing - ALONZO-7 Assessment Tool: ALONZO-7 Assessment 19036 ([id number]) Advance Care Planning Advance Care Planning discussion: Exists, not on file Date of discussion: 05/30/23 [facility] Time spent: 1-15 minutes, not on file Actual minutes spent: 5
== END 2023-05-30 12:51 | disposition home or self-care (01) ==
PROVIDERS: PCP Physician Assistant; Visit Provider Physician Assistant
DX: Z00.00 Encounter for general adult medical examination without abnormal findings (principal); R20.2 Paresthesia of skin; Z78.0 Asymptomatic menopausal state; R09.89 Other specified symptoms and signs involving the circulatory and respiratory systems
CPT/HCPCS: 1124F; 99214; G0438

== ENCOUNTER 2023-06-11 08:03 | Outpatient (REF) | payer MEDICARE, OTHER, SELFPAY ==
--- NOTE | ~2023-06-11 | XR_ITS ---
EXAMINATION: XR CERVICAL SPINE CLINICAL INFORMATION: Paresthesia of skin Numbness of fingers COMPARISON: None available. TECHNIQUE: 3 views of the cervical spine were obtained. FINDINGS: The bones are demineralized. There is marked kyphosis of the thoracic spine. The C6 and C7 cervical vertebral bodies are obscured by the soft tissues of the patient's shoulders. There is probably slight loss of height of the C6 vertebral body. No evidence of fracture. Prevertebral soft tissues are within normal limits. There is disc space narrowing at C6-C7. There is mild retrolisthesis of C3 respect to C4. There is mild anterolisthesis of C6 with respect to C7. There is multilevel narrowing of the neural foramina. XR/XR cervical spine 4V IMPRESSION: 1. Marked kyphosis of the thoracic spine. 2. Degenerative changes including degenerative disc disease at C6-C7. 3. Multilevel narrowing of the neural foramina. Mild anterolisthesis of C6 with respect to C7 and mild retrolisthesis C3 with respect to C4.
--- NOTE | 2023-06-11 08:15 | EMG_ITS ---
Bilateral median and ulnar motor and sensory studies were performed and bilateral radial sensory studies were performed. Paraspinal muscles were tested with a needle. IMPRESSION: 1. 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 2. [id number] bilateral ulnar neuropathy across cubital tunnel. MD GONZALES Jewell/SARAL / [phone]
[2023-06-11 10:08] LABS: Alanine Aminotransferase 13 U/L (0-31); Albumin Level 4.1 g/dL (3.5-5.0); Alkaline Phosphatase 57 U/L (39-117); Anion Gap 13 (12-20); Aspartate Amino Transferase 14 U/L (5-31); Bilirubin Total 0.7 mg/dL (0.0-1.0); Blood Urea Nitrogen 27 mg/dL (9-16); Calcium 9.9 mg/dL (8.4-10.2); Carbon Dioxide 24 mmol/L (22-29); Chloride 108 mmol/L (96-108); Cholesterol 210 mg/dL (<200); Estimated Glomerular Filt Rate 47; Glucose Fasting 93 mg/dL (60-99); HDL Cholesterol 47 mg/dL (>40); LDL Cholesterol Calculated 134 mg/dL (<100); Potassium 4.2 mmol/L (3.3-5.1); Sodium 141 mmol/L (135-145); Total Protein 7.2 g/dL (6.5-8.0); Triglycerides 149 mg/dL (<150)
[2023-06-11 11:49] LABS: Appearance Urine Cloudy; Color Urine Yellow; Glucose Urine UA Negative (Negative); Leukocyte Esterase Urine Large (3+) (Negative); Nitrite Urine Negative (Negative); PH 8.5 (5.0-9.0); Specific Gravity - Urine 1.015 (1.005-1.025); UMIC TRIGGER UACC YES; Urine Blood Negative (Negative); Urine Ketones Negative (Negative); Urine Protein Trace mg/dL (Neg-Trace)
[2023-06-11 11:53] LABS: Bacteria Urine 4+ (None Seen); Hyaline Casts Urine 0-2 /LPF (0-2); RBC Urine 0-2 /HPF (0-2); UACC Culture Trigger YES; WBC Urine >50 /HPF (0-5)
[2023-06-11 12:42] LABS: Creatinine Urine 68.77 mg/dL; Microalbum/Creatinine Ratio Ur 68.3 ug/mg cr (<30)
== END 2023-06-11 08:04 | disposition home or self-care (01) ==
LOC: HO.NEURO 08:03
PROVIDERS: PCP Physician Assistant; Visit Provider Physician Assistant
DX: R20.2 Paresthesia of skin (principal); I10 Essential (primary) hypertension; E78.2 Mixed hyperlipidemia; R30.0 Dysuria
CPT/HCPCS: 36415; 72050; 80053; 80061; 81001; 82043; 82570; 87086; 87088; 87186; 95886; 95911

== ENCOUNTER 2023-06-18 08:14 | Outpatient (REF) | payer MEDICARE, OTHER, SELFPAY ==
--- NOTE | ~2023-06-18 | US_ITS ---
EXAMINATION: US EXTRACRANIAL CAROTID DUPLEX, BILATERAL CLINICAL INFORMATION: Evaluate right carotid stenosis. COMPARISON: None available. TECHNIQUE: Real-time ultrasound and Doppler techniques (integrating B-mode 2-D vascular images, Doppler spectral analysis and color-flow Doppler imaging) were utilized to interrogate the extracranial carotid arteries, the vertebral arteries and proximal subclavian arteries bilaterally. The degree of stenosis is determined by criteria similar to NASCET. FINDINGS: Right Side: 1. There is mild atherosclerotic plaque seen in the bifurcation/proximal ICA region. 2. The common carotid artery PSV proximally is 118 cm/s and distally 94 cm/s. 3. The proximal internal carotid artery velocities are 78 cm/s systolic and 80 cm/s diastolic. 4. The proximal external carotid artery PSV is 15 cm/s. 5. The vertebral artery shows antegrade flow. 6. The subclavian artery waveforms are normal. Left Side: 1. There is mild atherosclerotic plaque seen in the bifurcation/proximal ICA region. 2. The common carotid artery PSV proximally is 88 cm/s and distally 79 cm/s. 3. The proximal internal carotid artery velocities are 72 cm/s systolic and 16 cm/s diastolic. 4. The proximal external carotid artery PSV is 80 cm/s. 5. The vertebral artery shows antegrade flow. 6. The subclavian artery waveforms are normal. US/US carotid duplex BI IMPRESSION: 1. RIGHT: Minimal, non-hemodynamically significant stenosis of the proximal right internal carotid artery corresponding to a 0-49% stenosis by velocity criteria. 2. LEFT: Minimal, non-hemodynamically significant stenosis of the proximal left internal carotid artery corresponding to a 0-49% stenosis by velocity criteria.
== END 2023-06-18 08:15 | disposition home or self-care (01) ==
LOC: HO.US 08:14
PROVIDERS: PCP Physician Assistant; Visit Provider Physician Assistant
DX: R09.89 Other specified symptoms and signs involving the circulatory and respiratory systems (principal)
CPT/HCPCS: 93880; 93882

== ENCOUNTER 2023-09-09 10:29 | Outpatient (AMB) | payer MEDICARE, OTHER, SELFPAY ==
--- NOTE | 2023-09-09 10:32 | MHC.OFFVIS ---
Vital Signs 09/09/23 10:33 Height 5 ft 1 in Weight 212 lb BMI 40.1 Intake Visit Reasons: OV-B/L knee OA-Interested in a injection Intake Note: Tatiana is an 88 year old female who presents today for a follow up of her bilateral knee osteoarthritis. She has history of a left knee injection in 2021. Patient reports that both of her knees are quite painful, she is hoping to have an injection in both of her knees. She feels pain all the time, worsened with prolonged standing and walking. Allergies No Known Allergies [No Known Allergies*] Allergy (Verified 05/30/23 11:45) HPI HPI OV-B/L knee OA-Interested in a injection: Details: Tatiana is an 88 year old female who presents today for a follow up of her bilateral knee osteoarthritis. She has history of a left knee injection in 2021. Patient reports that both of her knees are quite painful, she is hoping to have an injection in both of her knees. She feels pain all the time, worsened with prolonged standing and walking. She has had injection in the past which have been helpful. [facility] Medical History Obesity (BMI 30-39.9) Cardiac murmur Left pulmonary infiltrate on CXR Surgical History H/O hysterectomy for benign disease History of arthroscopic knee surgery Family History Father No problems noted. Mother Cancer Social History Housing: House Alcohol intake: never Patient Tobacco Use Status: Never used Tobacco e-Cigarette/Vaping Use: Never Used Second Hand Smoke Exposure: No service: No Current occupational status: retired Cognitive needs: No Hearing needs: No Vision needs: Yes (Glasses) Physical Exam Vital Signs: BMI result Body Mass Index 40.1 Extrem Other: ttp medial compartment bilateral knees Office Procedures Joint Injection/Aspiration Joint Injection/Aspiration Details: Injected 1 mL of Decadron and 3 mL 1% lidocaine and 3 mL of 0.25% Marcaine. Site was prepped using aseptic technique. Patient tolerated the procedure well. Primary Site: right knee Secondary Site: left knee Approach Used: anterolateral Coding - Large joint - Glenohumeral/Tronchanteric Bursa/Intraarticular Procedure code (CPT) selection complete Results Reviewed Results Reviewed: Moderate tricompatmental OA right > left Assessment & Plan Assessment & Plan (1) Bilateral carpal tunnel syndrome: Code(s): G56.03 - Carpal tunnel syndrome, bilateral upper limbs Category: Medical Plan: We discussed her hand numbness and I explained the difference betwen peripheral neuropathy and CTS. She appears to have CTS. She is scheduled to see Dr Collier (2) Localized osteoarthritis of knees, bilateral: Code(s): M17.0 - Bilateral primary osteoarthritis of knee Category: Medical Plan: I injected bilateral knees. May f/u in 3 mo for repeat injections or sooner for gel if pain relief is short-lived. Coding Level of Care Code Est Pt Level 4 (01721) Diagnoses Bilateral carpal tunnel syndrome G56.03 Localized osteoarthritis of knees, bilateral M17.0 CPT Codes Coding - Large joint: 54186 - Large joint ([id number]) Coding - Joint 7: 59286 - Glenohumeral/Tronchanteric Bursa/Intraarticular ([id number])
[2023-09-09 10:33] VITALS: BMI 40.1
== END 2023-09-09 11:08 | disposition home or self-care (01) ==
PROVIDERS: PCP Physician Assistant; Visit Provider Orthopaedic Surgery
DX: M17.0 Bilateral primary osteoarthritis of knee (principal); G56.03 Carpal tunnel syndrome, bilateral upper limbs
CPT/HCPCS: 20610; 99214

== ENCOUNTER → 2023-09-09 10:29 | Outpatient (BNVA) | payer MEDICARE, OTHER, SELFPAY | PROVIDERS: PCP Physician Assistant; Visit Provider Orthopaedic Surgery | DX: M17.0 Bilateral primary osteoarthritis of knee (principal); G56.03 Carpal tunnel syndrome, bilateral upper limbs | CPT/HCPCS: 20610; 99212; J0665; J1100 ==

== ENCOUNTER 2023-09-12 10:08 | Outpatient (REF) | payer MEDICARE, OTHER, SELFPAY ==
--- NOTE | ~2023-09-12 | MM_ITS ---
EXAMINATION: BONE DENSITOMETRY CLINICAL INDICATION: Asymptomatic menopausal state. COMPARISON: Baseline BD dated 06/04/2014. TECHNIQUE: Using a Expan DXA System (software version: 13.1) manufactured by [employer], dual-energy x-ray absorptiometry was performed of the lumbar spine and left hip. The images are of good technical quality. Summary results are attached. FINDINGS: LEFT FEMUR, NECK: Current: BMD 0.924 g/cm2, Z-score 1.0, T-score -0.8, normal. Baseline: BMD 0.988 g/cm2. LEFT FEMUR, TOTAL: Current: BMD 0.944 g/cm2, Z-score 1.2, T-score -0.5, normal, 3.2% decrease from baseline (<5% change is not significant). Baseline: BMD 0.975 g/cm2. AP SPINE L1-L4: Current: BMD 0.985 g/cm2, Z-score -0.7, T-score -1.6, osteopenia, 1.9% decrease from baseline (<5% change is not significant). Baseline: BMD 1.004 g/cm2. IDENTIFIED RISK FACTORS: Early menopause, secondary osteoporosis, hysterectomy, bilateral oophorectomy, height loss, history of fracture (adult), osteoporosis. HISTORY OF FRACTURE: Humerus. Other. MEDICATIONS: Calcium supplements or multivitamin, vitamin D. MM/XR DEXA axial skeleton IMPRESSION: 1. DIAGNOSIS: Osteopenia based on the lowest T-score value of -1.6 in the lumbar spine applying World Health Organization criteria. 2. 10-YEAR FRACTURE RISK PREDICTION, FRAX: Major osteoporotic fracture (clinical spine, forearm, hip or shoulder) 12.9%. Hip fracture 2.6%. 3. Treatment Recommendations: NOF guidelines recommend consideration for treatment in postmenopausal women and men age 50 and older presenting with the following: -A hip or vertebral (clinical or morphometric) fracture. -T-score less than or equal to -2.5 at the femoral neck or spine after appropriate evaluation to exclude secondary causes. -Low bone mass at the hip or spine and a 10-year fracture probability by FRAX of greater than or equal to 3% for hip fracture or greater than or equal to 20% for major osteoporotic fracture based on the [place] adapted WHO algorithm. 4. Other Recommendations: All treatment decisions require clinical judgment and consideration of individual patient factors, including patient preferences, comorbidities, previous drug use, risk factors not captured in the FRAX model (e.g. frailty, falls, vitamin D deficiency, increased bone turnover, interval significant decline in bone density) and possible under or overestimation of fracture risk by FRAX. Additional medical evaluation for secondary cause of low bone mineral density may be appropriate. FUTURE SCAN RECOMMENDATION: People with diagnosed cases of osteoporosis or at high risk for fracture should have regular bone mineral density tests. For patients eligible for Medicare, routine testing is allowed once every 2 years. The testing frequency can be increased to one year for patients who have rapidly progressing disease, those who are receiving or discontinuing medical therapy to restore bone mass, or have additional risk factors.
--- NOTE | ~2023-09-12 | MM_ITS ---
EXAMINATION: MM SCREENING DIGITAL BREAST TOMOSYNTHESIS, BILATERAL CLINICAL INFORMATION: Screening. Asymptomatic. COMPARISON: Mammography: This study is compared with prior exams dating back to 2018. TECHNIQUE: Digital breast tomosynthesis is performed in both the craniocaudal and mediolateral oblique views along with computer-aided detection (CAD). Synthesized 2D images are generated from the tomosynthesis. FINDINGS: There are scattered areas of fibroglandular density (ACR BI-RADS breast composition Category b). There are no significant masses, abnormal calcifications, or other abnormalities. MM/MM tomosynthesis screening BI IMPRESSION: No mammographic evidence of malignancy. ASSESSMENT: BI-RADS BI-RADS 1 - Negative RECOMMENDATION: Routine annual mammography screening. 1 year F/U This examination should not preclude the clinical evaluation of a suspicious palpable abnormality. This patient's information was entered into a reminder system with a target due date for their next mammogram. Electronically signed by: Kailey Mane MD 10/07/2023 02:50 AM EDT
== END 2023-09-12 10:09 | disposition home or self-care (01) ==
LOC: HO.MAMMO 10:08
PROVIDERS: PCP Physician Assistant; Visit Provider Physician Assistant
DX: Z12.31 Encounter for screening mammogram for malignant neoplasm of breast (principal); Z13.820 Encounter for screening for osteoporosis; Z78.0 Asymptomatic menopausal state
CPT/HCPCS: 77063; 77067; 77080

== ENCOUNTER → 2023-09-12 11:00 | Outpatient (BNV) | payer MEDICARE, OTHER, SELFPAY | PROVIDERS: PCP Physician Assistant; Visit Provider Radiology Diagnostic Radiology | DX: Z12.31 Encounter for screening mammogram for malignant neoplasm of breast (principal) | CPT/HCPCS: 77063; 77067 ==

== ENCOUNTER 2023-09-18 08:51 | Outpatient (AMB) | payer MEDICARE, OTHER, SELFPAY ==
[2023-09-18 09:02] VITALS: BMI 40.1
--- NOTE | 2023-09-18 09:02 | A.OFFVIS_ITS ---
Vital Signs 09/18/23 09:02 Height 5 ft 1 in Weight 212 lb BMI 40.1 Intake Visit Reasons: New Prob-Bilateral carpal tunnel syndrome Intake Note: Tatiana is a 88 yo left hand dominant female who presents today for a new problem visit regarding bilateral CTS. Patient reports symptoms have been constant since 2020. Patient reports numbness and tingling. She states her middle fingers are locking on. Reports she does not have pain but pins and needles. Patient states she fell on cement last Saturday and hurt her right thumb. Patient states she had bilateral thumb cortisone injections about 5 years ago that provided relief, no more trigger thumbs. Patient reports she had EMG done. Allergies No Known Allergies [No Known Allergies*] Allergy (Verified 09/18/23 09:02) HPI HPI New Prob-Bilateral carpal tunnel syndrome: Details: Tatiana is an 88 year old left hand dominant woman who presents with several complaints. She is here for a NCS review. She complains of dense numbness in her bilateral thumb, index, and middle fingers. She denies any small finger numbness. She says her numbness has been present & worsening for ~3 years now. She also complains of bilateral middle finger painful locking, L>R. She has a hx of bilateral trigger thumbs which resolved with steroid injections ~5 years ago. She complains of right thumb pain, and says she fell on 09/13/23. She says she was gripping a railing very tightly and her thumb was bruised from her gripping. She says she is going to [place] in November for a month, and then leaving again in February until May. [facility] Medical History Obesity (BMI 30-39.9) Cardiac murmur Left pulmonary infiltrate on CXR Surgical History H/O hysterectomy for benign disease History of arthroscopic knee surgery Family History Father No problems noted. Mother Cancer Social History (Updated 09/18/23 @ 09:08 by GOLD Huerta) Housing: House Alcohol intake: never Patient Tobacco Use Status: Never used Tobacco e-Cigarette/Vaping Use: Never Used Second Hand Smoke Exposure: No service: No Current occupational status: retired Current occupation: lt handed Cognitive needs: No Hearing needs: No Vision needs: Yes (Glasses) Review of Systems Const All systems reviewed & are unremarkable except as noted in HPI and below Physical Exam Vital Signs: BMI result Body Mass Index 40.1 Const General: cooperative, healthy appearing and no acute distress Orientation/consciousness: patient oriented x3 HEENT Head: Yes normocephalic and Yes atraumatic Eyes EOM: EOMs intact bilaterally Resp Effort & Inspection: normal respiratory effort and able to speak in complete sentences Cardio Jugular venous distension: no JVD Skin General skin exam: turgor normal Rashes: no rashes Neuro General: patient oriented x3 Extrem Other: Evaluation of Bilateral Upper Extremity: The patient is alert, oriented, and in no acute distress Neuro: Dense numbness in the median nerve distribution bilaterally. Normal sensation in the ulnar nerve distribution bilaterally Some early thenar wasting bilaterally left worse than right Good APB muscle belly firing and good finger cross Vascular: Cap refill brisk ROM: She can make a weak fist and extend all her digits Visible and palpable locking & catching of the middle fingers bilaterally Tender over the a1 librado of the middle fingers bilaterally. Skin: No lacerations or abrasions. General: No Erythema or evidence of infection. Generalized arthritic changes in the DIP & PIP joints of both hands Nerve Conduction Study: IMPRESSION: 1. 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 2. [id number] bilateral ulnar neuropathy across cubital tunnel. Deidra Thomas MD 06/11/2023 Psych Appearance: grossly normal Affect: normal affect Attitude: cooperative Assessment & Plan Assessment & Plan (1) Carpal tunnel syndrome of left wrist: Code(s): G56.02 - Carpal tunnel syndrome, left upper limb Category: Medical (2) Trigger finger, left middle finger: Code(s): M65.332 - Trigger finger, left middle finger Category: Medical (3) Carpal tunnel syndrome of right wrist: Code(s): G56.01 - Carpal tunnel syndrome, right upper limb Category: Medical (4) Trigger finger, right middle finger: Code(s): M65.331 - Trigger finger, right middle finger Category: Medical (5) Cubital tunnel syndrome on right: Code(s): G56.21 - Lesion of ulnar nerve, right upper limb Category: Medical (6) Cubital tunnel syndrome on left: Code(s): G56.22 - Lesion of ulnar nerve, left upper limb Category: Medical Plan Assessment & Plan: 1. Left carpal tunnel syndrome, moderate-severe With dense numbness This is her primary complaint today 2. Left middle finger trigger finger I educated her about these conditions I discussed operative and non-operative treatment options The patient would like to proceed with surgery, beginning with the left side The risks and benefits of operative treatment were discussed with the patient and the patient wishes to proceed with surgery. These risks include, but are not limited to risk of damage to blood vessels, nerves, tendons, infection, recurrence, incomplete relief of preoperative symptoms, persistent pain, possible need for further surgery and the risks associated with regional blocks and anesthesia. The plan is to take the patient to the operating room sometime in the next few weeks for the following procedures: 1. Left Carpal tunnel release, under local 2. Left middle finger trigger release, under local All of the preoperative paperwork including the consent was reviewed today. All the patient's questions were answered. The patient understands that they will be contacted by our plastic surgery coordinator soon to schedule this procedure. She would like to be placed on a cancellation list for a sooner surgery, if possible. She is travelling to [place] from 11/16-12/17, and then from 02/12/2024 until May 12 and will be unavailable for surgery in those periods. She denies Diabetes, blood thinners, asthma, kidney issues She has COPD & a carciac murmur. 3. Right carpal tunnel syndrome, moderate-severe With dense numbness She will follow up to discuss treatment when her left side has recovered 4. Right middle finger trigger finger I educated her about this condition She declined any injections today If her symptoms increase in frequency or severity she can follow up to discuss treatment options. 5. Left cubital tunnel syndrome, mild-moderate 6. Right cubital tunnel syndrome, mild-moderate No complaints of small finger numbness bilaterally today in clinic Scribed for Laura Collier MD by Darshan Clayton, medical claims processor, on [ ] at [ ], EST. Coding Level of Care Code New Pt Level 4 (25739) Diagnoses Carpal tunnel syndrome of left wrist G56.02 Trigger finger, left middle finger M65.332 Carpal tunnel syndrome of right wrist G56.01 Trigger finger, right middle finger M65.331 Cubital tunnel syndrome on right G56.21 Cubital tunnel syndrome on left G56.22
== END 2023-09-18 09:47 | disposition home or self-care (01) ==
PROVIDERS: PCP Physician Assistant; Visit Provider Orthopaedic Surgery
DX: G56.03 Carpal tunnel syndrome, bilateral upper limbs (principal); M65.332 Trigger finger, left middle finger; M65.331 Trigger finger, right middle finger; G56.23 Lesion of ulnar nerve, bilateral upper limbs
CPT/HCPCS: 99204

== ENCOUNTER → 2023-09-18 08:51 | Outpatient (BNVA) | payer MEDICARE, OTHER, SELFPAY | PROVIDERS: PCP Physician Assistant; Visit Provider Orthopaedic Surgery | DX: G56.03 Carpal tunnel syndrome, bilateral upper limbs (principal); G56.23 Lesion of ulnar nerve, bilateral upper limbs; M65.331 Trigger finger, right middle finger; M65.332 Trigger finger, left middle finger | CPT/HCPCS: 99202 ==

== ENCOUNTER 2023-10-17 09:25 | Outpatient (AMB) | payer MEDICARE, OTHER, SELFPAY ==
--- NOTE | 2023-10-17 09:29 | MHC.PC.OV ---
Vital Signs 10/17/23 09:30 Height 5 ft 1 in Weight 215 lb BMI 40.6 BP 134/62 Blood Pressure Location Lt brachial Position Sitting Pulse 65 Pulse Source Pulse Oximeter Pulse Oximetry (%) 95 Oxygen Delivery Method Room Air Intake Visit Reasons: [facility] Bacon Rt Eye cataract Intake Note: Patient is here for a Pre-op for Cataract scheduled with Dr. Bacon on 10/22/23. Billing Customer Service Representative Required: No Allergies No Known Allergies [No Known Allergies*] Allergy (Verified 10/17/23 09:46) Medication List - Last Reconciled 10/17/23 by Gloria Redman PA-C lisinopril 40 mg PO DAILY metoprolol succinate ER 50 mg PO DAILY 90 days montelukast 10 mg PO DAILY simvastatin 20 mg PO DAILY Tobacco use date assessed: 10/17/23 Fall risk assessment: No Falls in past year Last assessed Fall Risk: 10/17/23 Dental Screening Dental Screen Date: 10/17/23 HPI [facility] cataract HPI Details 88-year-old female with past medical history of hyperlipidemia, hypertension, COPD last seen by TERESITA May 2023 coming in for cataract preop appointment.? Patient is due to have cataract surgery with [facility] with Dr. Bacon for the right eye 10/22/2023. Hypertension: Currently on lisinopril 40 mg and metoprolol and blood pressure is well controlled. Hyperlipidemia: Cholesterol has been stable currently on simvastatin 20 mg. COPD: Not currently managed on inhalers. Considered to be stable. Patient has no history of CHF, CVA, IA, or diabetes mellitus. Has had anesthesia in the past. [facility] Medical History Obesity (BMI 30-39.9) Cardiac murmur Left pulmonary infiltrate on CXR Surgical History H/O hysterectomy for benign disease History of arthroscopic knee surgery Family History Father No problems noted. Mother Cancer Social History Housing: House Alcohol intake: never Patient Tobacco Use Status: Never used Tobacco e-Cigarette/Vaping Use: Never Used Second Hand Smoke Exposure: No service: No Current occupational status: retired Current occupation: lt handed Cognitive needs: No Hearing needs: No Vision needs: Yes (Glasses) Questionnaire Thrive Questionnaire Date Thrive assessed: 05/30/23 AUDIT C Alcohol Use Questionnaire (AUDIT-C) 1. How often do you have a drink containing alcohol?: Never 3. How often do you have six or more drinks on one occasion?: Never Total Score: 0 ALONZO-7 AMB Questionnaire ALONZO-7 Date ALONZO - 7 assessed: 05/30/23 Source: Developed by Drs. Cody Nicole, Tati Lawler, Star Plascencia and colleagues, with an educational david from [employer]. Review of Systems Const Denies body aches, Denies fatigue, Denies fever(s), Denies frequent falls, Denies headache(s) and Denies weakness Eyes Reports no additional complaints and Denies change in vision ENT Denies dysphagia, Denies dizziness, Denies facial pain, Denies headache(s), Denies nasal congestion and Denies odynophagia Card Denies chest pain, Denies syncope, Denies irregular heart rhythm, Denies leg edema, Denies lightheadedness and Denies dyspnea Resp Denies cough and Denies dyspnea GI Denies constipation, Denies dysphagia, Denies dyspepsia, Denies diarrhea, Denies nausea, Denies odynophagia and Denies vomiting Denies urinary frequency, Denies dysuria, Denies urinary hesitancy and Denies urinary urgency Musc Reports back pain and Denies myalgias Skin/Breast Reports system reviewed and no additional complaints, except as documented Neuro Denies dizziness, Denies syncope, Denies frequent falls, Denies headache(s) and Denies weakness Psych Reports no additional complaints Endo Denies fatigue Physical exam (Primary Care) Vital Signs: Oxygen Delivery Method Room Air 10/17/23 09:30 BMI result Body Mass Index 40.6 Tobacco/Smoking Status: Tobacco use Status Tobacco use date assessed 05/22/22 05/22/22 14:06 Patient Tobacco Use Status Never used Tobacco 09/18/23 09:08 e-Cigarette/Vaping Use Never Used 09/18/23 09:08 Thrive Assessment: Date of Thrive Assessment Date Thrive assessed 05/30/23 05/30/23 11:34 Const General: cooperative, healthy appearing, comfortable and no acute distress Orientation/consciousness: patient oriented x3 HENMT Head: Yes normocephalic Ears: hearing grossly normal bilaterally General nose exam: Normal external nose present Eyes General: appearance normal, both eyes and all related structures Conjunctivae: conjunctivae normal Neck Neck: Yes full ROM and Yes no lymphadenopathy Resp Effort & Inspection: normal respiratory effort Auscultation: clear to auscultation bilaterally, no crackles, no rales, no rhonchi and no wheezes Cardio Rate: regular rate Rhythm: regular rhythm Skin General skin exam: no rashes or lesions noted Neuro General: patient oriented x3 Gait exam (Neuro): Normal gait present Extrem General: Yes normal to inspection, Yes full ROM and No edema Psych Affect: normal affect Attitude: cooperative Insight: Good insight present (Psych) Judgement: Good judgement present (Psych) Assessment and Plan Assessment & Plan (1) Pre-op evaluation: Code(s): Z01.818 - Encounter for other preprocedural examination Plan: Regarding preop clearance, the patient is at moderate risk for proposed surgery due to her age however her comorbidities are well managed and has no prior cardiovascular event. Reviewed with the patient that no surgery is completely free of risk and that this examination is to assist the surgeon in reviewing informed consent. Last blood work was completed May 2023 and kidney and liver function were within normal limits and considered stable. Patient is not currently on any blood thinners, NSAIDs, or antiplatelet medications. Plan This note was constructed using voice recognition software. While every effort has been made to ensure accuracy and crew person, still areas may have been included sometimes these areas may affect the content or meeting of the given symptoms. Total time spent caring for the patient today was 30 minutes. This includes time spent before the visit reviewing the chart, time spent during the visit, and time spent after the visit and documentation. Medications: New lidocaine 5% leave on most painful area for up to 12 hrs 1 patch topical DAILY 15 ea 0RF Coding Level of Care Code Est Pt Level 3 (58387) Diagnoses Pre-op evaluation Z01.818
[2023-10-17 09:30] VITALS: BP 134/62; PULSE 65; O2SAT 95; BMI 40.6
== END 2023-10-17 10:10 | disposition home or self-care (01) ==
PROVIDERS: PCP Physician Assistant
DX: Z01.818 Encounter for other preprocedural examination (principal)
CPT/HCPCS: 99213

== ENCOUNTER 2023-12-26 09:46 | Day surgery (SDC) | payer MEDICARE, OTHER, SELFPAY ==
[2023-12-25 13:35] VITALS: BMI 42.0
[2023-12-26 10:05] VITALS: BP 135/55; PULSE 71; RESP 20; TEMP 36.4; O2SAT 97
--- NOTE | 2023-12-26 10:09 | W.PM.OPN ---
Operative Note Operative Note Date of Service: 12/26/23 Narrative: Preop diagnosis: 1. Left Carpal tunnel syndrome 2. Left middle finger trigger finger Postop diagnosis: same Procedure: 1. Left Carpal tunnel release 2. Left middle finger trigger release Surgeon: Laura Collier MD Water Supply Engineer: Gerardo LO Anesthesia: local block using 1% lidocaine with epinephrine Findings: Thickened transverse carpal ligament, no locking or catching after A1 librado release. EBL: Less than 5 mL Specimens: None Complications: None Disposition: Brought to recovery room in stable condition Plan: Follow-up for 10-14 days for wound check and suture removal Indications: The patient is 88 years old, with left carpal tunnel syndrome and a left middle finger trigger finger that have been unresponsive to nonoperative management. The risks and benefits of operative treatment including but not limited to risk of damage to blood vessels, nerves, tendons, infection, persistent pain, persistent symptoms, or possible need for additional surgery were discussed with the patient and the patient wishes to proceed with surgery. Procedure: Once consent was obtained a local block was performed using a combination of 1% lidocaine with epinephrine. The patient was then brought back to the operating suite and placed on the operative table in supine position. The left upper extremity was prepped and draped in a standard surgical fashion. Once assured that we had a good block, a 1.5 cm oblique incision was made centered over the A1 librado of the left middle finger . The incision was made through the skin to the subcutaneous tissues using a #15 blade. Careful dissection was made down to the level of the A1 librado using tenotomy scissors, with care being taken to protect the nearby neurovascular structures. A longitudinal incision was made in the A1 librado 1st using a #15 blade, then using tenotomy scissors under direct visualization. The A1 librado was noted to be thickened. Following our A1 librado release, we no longer saw any locking or catching of the digit with flexion and extension. Once assured that we had a good block, a 2.0 cm longitudinal incision was made centered over the carpal tunnel. The incision was made through the skin to the subcutaneous tissues using a #15 blade. Dissection was made down to the level of the transverse carpal ligament with care being taken to protect the palmar cutaneous nerve. Once the transverse carpal ligament was clearly visualized, a longitudinal incision was made in the transverse carpal ligament 1st using a #15 blade, then using tenotomy scissors under direct visualization. Care was taken to look for and protect the motor branch of the median nerve when seen in this area. Once satisfied with our carpal tunnel release the wound was copiously irrigated with normal saline and hemostasis was obtained with a brief period of local pressure. The skin edges were reapproximated with some 5.0 nylon suture material and a sterile dressing was applied. The patient appears to have tolerated the procedure well and with no complications. All digits were well vascularized at the conclusion of the case.
--- NOTE | 2023-12-26 12:55 | MHC.SHP ---
Pre-Procedural Eval Section A - 24 Hr Update-Section A only Date of Service: 12/26/23 The patient is an INPATIENT: No Changes since office visit: No Cold of Flu in the past 2 weeks, No New Medical Problems, No Changes in Medication and No Patient answered all questions The patient has been examined within 24 hours of the surgical procedure. The History & Physical has been completed within 30 days and I have reviewed it.: Yes Section B - Complete if H&P > 30 days Chief Complaint: Carpal tunnel syndrome,trigger finger left Allergies: Allergies Allergy/AdvReac Type Severity Reaction Status Date / Time No Known Allergies Allergy Verified 10/17/23 09:46 [No Known Allergies*] Plan Diagnosis/Plan: Unchanged I have reviewed the history and physical and performed a pertinent physical examination on my patient. No changes have occurred unless specified. Time Spent With Patient Time: Total time managing care of this patient today ____ minutes.
[2023-12-26 14:41] VITALS: BP 154/62; PULSE 63; RESP 16; O2SAT 91
== END 2023-12-26 14:43 | disposition home or self-care (01) ==
PROVIDERS: PCP Physician Assistant; Visit Provider Orthopaedic Surgery
PROC: (CPT 64721; principal; 2023-12-26 12:20)
PROC: (CPT 26055; 2023-12-26 12:20)
DX: G56.02 Carpal tunnel syndrome, left upper limb (principal); M65.332 Trigger finger, left middle finger; R20.0 Anesthesia of skin; R20.2 Paresthesia of skin; S60.011A Contusion of right thumb without damage to nail, initial encounter; W19.XXXA Unspecified fall, initial encounter; Y93.01 Activity, walking, marching and hiking; Y92.9 Unspecified place or not applicable; Y99.9 Unspecified external cause status; J44.9 Chronic obstructive pulmonary disease, unspecified; R01.1 Cardiac murmur, unspecified; R91.8 Other nonspecific abnormal finding of lung field; E66.9 Obesity, unspecified; Z68.41 Body mass index [BMI] 40.0-44.9, adult; Z98.890 Other specified postprocedural states
CPT/HCPCS: 64721; 26055; J0171; J2003

== ENCOUNTER → 2023-12-26 09:46 | Outpatient (BNV) | payer MEDICARE, OTHER, SELFPAY | PROVIDERS: PCP Physician Assistant; Visit Provider Orthopaedic Surgery | DX: G56.02 Carpal tunnel syndrome, left upper limb (principal); M65.332 Trigger finger, left middle finger | CPT/HCPCS: 26055; 64721 ==

== ENCOUNTER 2024-01-07 09:10 | Outpatient (AMB) | payer MEDICARE, OTHER, SELFPAY ==
[2024-01-07 09:16] VITALS: BMI 42.0
--- NOTE | 2024-01-07 09:16 | A.OFFVIS_ITS ---
Vital Signs 01/07/24 09:16 Height 5 ft Weight 215 lb BMI 42.0 Intake Visit Reasons: PO RT CTR/MF trigger 12/26/23 AR Intake Note: Tatiana is an 89 yo left hand dominant female who presents today post operatively s/p left carpal tunnel release and middle finger trigger release done 12/26/[address] Collier. Reports on going numbness and tingling on all of her fingertips. Denies finger locking. Sutures removed in office today and steri strips applied. Allergies No Known Allergies [No Known Allergies*] Allergy (Verified 01/07/24 09:26) HPI HPI PO RT CTR/MF trigger 12/26/23 AR: Details: Tatiana is an 89 year old left hand dominant woman who returns S/P left carpal tunnel release & middle finger trigger release, DOS: 12/26/23. She says she is doing well, but continues to have numbness in the median nerve distribution. She says she is unsure if this has improved following surgery, but does say her nighttime symptoms have improved. She denies any locking or catching of her left middle finger. She complains of dense numbness in her right thumb, index, and middle fingers. She denies any small finger numbness. She says her numbness has been present & worsening for ~3 years now. She also complains of right ring finger painful locking. She has a hx of bilateral trigger thumbs which resolved with steroid injections ~5 years ago. She says she is going to [place] from 02/12/24-05/12/24 [facility] Medical History Obesity (BMI 30-39.9) Cardiac murmur Left pulmonary infiltrate on CXR Surgical History H/O hysterectomy for benign disease History of arthroscopic knee surgery Family History Father No problems noted. Mother Cancer Social History Housing: House Alcohol intake: never Patient Tobacco Use Status: Never used Tobacco e-Cigarette/Vaping Use: Never Used Second Hand Smoke Exposure: No service: No Current occupational status: retired Current occupation: lt handed Cognitive needs: No Hearing needs: No Vision needs: Yes (Glasses) Review of Systems Const All systems reviewed & are unremarkable except as noted in HPI and below Physical Exam Vital Signs: BMI result Body Mass Index 42.0 Const General: no acute distress and alert Orientation/consciousness: patient oriented x3 Neuro General: patient oriented x3 Extrem Other: The patient was alert oriented and in no acute distress The incision is healing well with no erythema drainage or evidence of infection. Sutures removed and Steri-Strips applied She can make a fist and extend all her digits She had some stiffness in the left middle finger, but was able to bring it closed to a fist No locking or catching of the middle finger Neuro: Still with dense numbness in the median nerve distribution of the left hand. Dense numbness in the median nerve distribution of the right hand. Normal sensation in the ulnar nerve distribution bilaterally Some early thenar wasting bilaterally, L>R Good APB muscle belly firing and good finger cross Cap refill is brisk Nerve Conduction Study: IMPRESSION: 1. 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 2. Pebr-[id number] bilateral ulnar neuropathy across cubital tunnel. Deidra Thomas MD 06/11/2023 Psych Appearance: grossly normal Affect: normal affect Attitude: cooperative Assessment & Plan Assessment & Plan (1) Carpal tunnel syndrome of left wrist: Code(s): G56.02 - Carpal tunnel syndrome, left upper limb Category: Medical (2) Trigger finger, left middle finger: Code(s): M65.332 - Trigger finger, left middle finger Category: Medical (3) Carpal tunnel syndrome of right wrist: Code(s): G56.01 - Carpal tunnel syndrome, right upper limb Category: Medical (4) Trigger finger, right middle finger: Code(s): M65.331 - Trigger finger, right middle finger Category: Medical (5) Cubital tunnel syndrome on right: Code(s): G56.21 - Lesion of ulnar nerve, right upper limb Category: Medical (6) Cubital tunnel syndrome on left: Code(s): G56.22 - Lesion of ulnar nerve, left upper limb Category: Medical (7) Trigger finger, right ring finger: Code(s): M65.341 - Trigger finger, right ring finger Category: Medical Plan Assessment & Plan: 1. Left carpal tunnel syndrome, S/P release DOS: 12/26/23 Pre-operatively with dense numbness Still with dense numbness, but improvements in her nighttime symptoms 2. Left middle finger trigger finger, S/P release DOS: 12/26/23 The patient appears to be doing well post-operatively I educated her about the post-operative course I explained that it may take up to 9 months post-operatively for any sensation to return. I explained the signs and symptoms of infection, if the patient develops any new or worsening erythema, drainage, pain, or warmth they should contact the clinic or attend the ED. I discussed activity modifications, she is to lift nothing heavier than a cellphone for the next two weeks She will perform gentle ROM exercises at home She should avoid any underwater activities for the next 5 days She should gently massage about the incision site to reduce the risk of hypersensitivity She can follow up prn 3. Right carpal tunnel syndrome, moderate-severe With dense numbness She will follow up to discuss treatment when her left side has recovered 4. Right ring finger trigger finger 5. Right middle finger trigger finger I educated her about these conditions I discussed operative and non-operative treatment options The patient would like to proceed with surgery, however she will be travelling to [place] for the coming months and will not be back in town until after 05/12/24. She will make an appointment when she returns to discuss treatment options 6. Left cubital tunnel syndrome, mild-moderate 7. Right cubital tunnel syndrome, mild-moderate No complaints of small finger numbness bilaterally today in clinic Scribed for Laura Collier MD by rubi Lockett, on 01/07/24 at 9:40 AM, EST. Scribe Plan - Not visible on output: Scribed for Laura Collier MD by rubi Lockett scribe, on [ ] at [ ], EST. Coding Level of Care Code Global (93632) Diagnoses Carpal tunnel syndrome of left wrist G56.02 Trigger finger, left middle finger M65.332 Carpal tunnel syndrome of right wrist G56.01 Trigger finger, right middle finger M65.331 Cubital tunnel syndrome on right G56.21 Cubital tunnel syndrome on left G56.22 Trigger finger, right ring finger M65.341
== END 2024-01-07 09:49 | disposition home or self-care (01) ==
PROVIDERS: PCP Physician Assistant; Visit Provider Orthopaedic Surgery
DX: G56.03 Carpal tunnel syndrome, bilateral upper limbs (principal); G56.23 Lesion of ulnar nerve, bilateral upper limbs; M65.332 Trigger finger, left middle finger; M65.331 Trigger finger, right middle finger; M65.341 Trigger finger, right ring finger
CPT/HCPCS: 99024

== ENCOUNTER → 2024-01-07 09:10 | Outpatient (BNVA) | payer MEDICARE, OTHER, SELFPAY | PROVIDERS: PCP Physician Assistant; Visit Provider Orthopaedic Surgery | DX: G56.01 Carpal tunnel syndrome, right upper limb (principal); M65.331 Trigger finger, right middle finger; G56.21 Lesion of ulnar nerve, right upper limb; M65.341 Trigger finger, right ring finger; Z09 Encounter for follow-up examination after completed treatment for conditions other than malignant neoplasm; Z98.890 Other specified postprocedural states | CPT/HCPCS: 99212 ==

== ENCOUNTER 2024-01-16 10:05 | Outpatient (REF) | payer MEDICARE, OTHER, SELFPAY ==
[2024-01-16 10:50] LABS: Hematocrit 38.5 % (37.0-47.0); Hemoglobin 13.1 g/dl (12.0-16.0); Mean Corpuscular Hemoglobin 31.6 pg (27.0-33.0); Mean Platelet Volume 10.1 fL (9.4-12.3); Platelet Count 186 X10*3/uL (160-400); Red Blood Count 4.14 X10*6/uL (4.20-5.50); Red Cell Distribution Width 12.6 % (11.0-16.0); White Blood Count 6.7 X10*3/uL (4.8-10.8)
[2024-01-16 11:17] LABS: Appearance Urine Clear; Color Urine Yellow; Glucose Urine UA Negative (Negative); Leukocyte Esterase Urine Trace (Negative); Nitrite Urine Negative (Negative); PH 5.5 (5.0-9.0); UMIC TRIGGER UACC YES; Urine Blood Negative (Negative); Urine Ketones Negative (Negative); Urine Protein Negative (Neg-Trace)
[2024-01-16 11:21] LABS: Bacteria Urine None Seen (None Seen); Hyaline Casts Urine 0-2 /LPF (0-2); RBC Urine 0-2 /HPF (0-2); WBC Urine 0-5 /HPF (0-5)
[2024-01-16 11:31] LABS: Alanine Aminotransferase 18 U/L (0-31); Albumin Level 4.1 g/dL (3.5-5.0); Alkaline Phosphatase 59 U/L (39-117); Anion Gap 11 (12-20); Aspartate Amino Transferase 17 U/L (5-31); Bilirubin Total 0.7 mg/dL (0.0-1.0); Blood Urea Nitrogen 28 mg/dL (9-16); Carbon Dioxide 24 mmol/L (22-29); Chloride 110 mmol/L (96-108); Cholesterol 210 mg/dL (<200); Estimated Glomerular Filt Rate 47; Glucose Fasting 95 mg/dL (60-99); HDL Cholesterol 44 mg/dL (>40); LDL Cholesterol Calculated 131 mg/dL (<100); Potassium 4.2 mmol/L (3.3-5.1); Sodium 141 mmol/L (135-145); Total Protein 7.2 g/dL (6.5-8.0); Triglycerides 178 mg/dL (<150)
[2024-01-16 12:28] LABS: Microalbumin Urine < 5.0 mg/L
== END 2024-01-16 10:06 | disposition home or self-care (01) ==
LOC: HO.LAB 10:05
PROVIDERS: Internal Medicine; PCP Physician Assistant; Visit Provider Physician Assistant
DX: R30.0 Dysuria (principal); I10 Essential (primary) hypertension; E78.2 Mixed hyperlipidemia; R80.9 Proteinuria, unspecified
CPT/HCPCS: 36415; 80053; 80061; 81001; 82043; 82570; 85027

== ENCOUNTER 2024-01-21 09:25 | Outpatient (AMB) | payer MEDICARE, OTHER, SELFPAY ==
--- NOTE | 2024-01-21 09:45 | A.OFFPC_ITS ---
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 Pmhx significant for HLD, COPD, H TN, GERD,? osteoarthritis.. /. Carpal tunnel syndrome: She recently completed carpal tunnel surgery and trigger finger release with positive outcomes in wound healing but continues to experience numbness, likely due to underlying arthritis. ? . ? .. ? HTN: Patient reports her BP is okay, no reports of side effects of her HTN meds. BP acceptable in office today. No CP, Dizziness or headaches reported. ? . ? HLd: She has been managing hyperlipidemia with a statin, noting stable cholesterol levels that remain borderline high at 210 mg/dL, with a slight improvement in LDL levels from 134 mg/dL to 131 mg/dL . .. Obesity: Unfortunately gained a few lb since last office visit. She is very physically active and does workouts at a local gym several times a week. [facility] Medical History (Updated 01/22/24 @ 07:42 by Mark Ribeiro PA-C) Lumbar compression fracture Surgical History H/O hysterectomy for benign disease History of arthroscopic knee surgery Family History Father No problems noted. Mother Cancer Social History Housing: House Alcohol intake: never Patient Tobacco Use Status: Never used Tobacco e-Cigarette/Vaping Use: Never Used Second Hand Smoke Exposure: No service: No Current occupational status: retired Current occupation: lt handed Cognitive needs: No Hearing needs: No Vision needs: Yes (Glasses) Questionnaire Thrive Questionnaire Date Thrive assessed: 05/30/23 ALONZO-7 AMB Questionnaire ALONZO-7 Date ALONZO - 7 assessed: 05/30/23 Source: Developed by Drs. Cody Nicole, Tati Lawler, Star Plascencia and colleagues, with an educational david from [employer]. Review of Systems Const Denies headache(s) Eyes Denies loss of vision ENT Denies vertigo, Denies dizziness, Denies headache(s) and Denies sore throat Card Denies chest pain, Denies leg edema and Denies lightheadedness Resp Denies cough, Denies hemoptysis and Denies wheezing GI Denies abdominal pain, Denies melena, Denies constipation, Denies diarrhea and Denies vomiting Denies urinary frequency, Denies dysuria and Denies urinary urgency Musc Denies arthralgias, Denies joint swelling, Denies numbness and Denies tingling Neuro Denies Abnormal speech present, Denies behavioral changes, Denies vertigo, Denies dizziness, Denies headache(s), Denies loss of vision, Denies memory loss, Denies numbness and Denies tingling Psych Denies anxiety, Denies behavioral changes, Denies depression, Denies memory loss and Denies panic attacks Von/Lymph Denies easy bleeding and Denies easy bruising Aller/Immun Denies wheezing Physical exam (Primary Care) Vital Signs: Last Vital Signs Pulse 68 01/21/24 09:51 BP 122/62 01/21/24 10:09 Pulse Ox 95 01/21/24 09:51 Oxygen Delivery Method Room Air 01/21/24 09:51 BMI result Body Mass Index 42.7 Tobacco/Smoking Status: Tobacco use Status Tobacco use date assessed 01/21/24 01/21/24 09:52 Patient Tobacco Use Status Never used Tobacco 01/21/24 09:46 e-Cigarette/Vaping Use Never Used 01/21/24 09:46 Thrive Assessment: Date of Thrive Assessment Date Thrive assessed 05/30/23 01/21/24 09:46 Const General: healthy appearing, no acute distress, alert and awake Nutritional Appearance: well nourished Orientation/consciousness: oriented to person, oriented to place and oriented to time HENMT Ears: TM's normal bilaterally General nose exam: Normal nasal mucous membranes and turbinates present Eyes Conjunctivae: conjunctivae normal Sclerae: sclerae normal Pupils: Equal, round and reactive pupils present Neck Neck: Yes no lymphadenopathy and Yes no JVD Thyroid: Thyroid normal Carotids: no bruits Resp Effort & Inspection: normal respiratory effort and not tachypneic Auscultation: no crackles, no rales, no rhonchi and no wheezes Cardio Rate: regular rate Rhythm: regular rhythm Heart sounds: no murmurs and normal S1 and S2 GI Palpation (GI): Soft to palpation, nontender, no hepatomegaly and no splenomegaly Auscultation: normal bowel sounds Skin General skin exam: no rashes or lesions noted and dry skin Neuro General: oriented to person, oriented to place and oriented to time Cranial nerves: Yes Equal, round and reactive pupils present Speech: No Abnormal speech present Gait exam (Neuro): Normal gait present Motor exam (neuro): no tremor noted Extrem Right upper extremity: full ROM Left upper extremity: full ROM Right lower extremity: full ROM; no edema Left lower extremity: full ROM; no edema Psych Mental Status: mental status grossly normal Speech and movement: Normal speech and movement present Affect: normal affect Attitude: cooperative Thought process: Normal thought process present Office Procedures Flu Questionnaire Does the patient have a severe egg allergy?: No Immunizations Fluarix Triv [id number] (PF) 45 mcg (15 mcg x 3)/0.5 mL IM syringe Performing Provider: Mark Ribeiro PA-C [place] [facility] Documented (not given) by: TERESA Ace on 01/21/24 09:52 Reason Not Given: Received Previously pneumoc 20-leighton conj-dip cr(PF) 0.5 mL IM syringe Performing Provider: Mark Ribeiro PA-C [place] [facility] Administered by: TERESA Ace on 01/21/24 10:38 Dose Route Admin Location Dispensed Lot Number Expiration Date NDC Field Sales Specialist 0.5 mL IM Right Deltoid 0.5 mL [id number] 04/11/25 [facility] VIS Given Date VIS Provided VIS Publication Date 01/21/24 Single Vaccine 21 Eligibility Eligibility Date Funding Source Not [facility] Eligible 01/21/24 Private Coding Level of Care Code Est Pt Level 4 (99263) Diagnoses Mixed hyperlipidemia E78.2 Hyperlipidemia type: mixed hyperlipidemia Essential hypertension I10 Hypertension type: essential hypertension Class 3 obesity E66.813 Carpal tunnel syndrome of right wrist G56.01 Assessment & Plan Assessment & Plan (1) Hyperlipidemia: Code(s): E78.5 - Hyperlipidemia, unspecified Category: Medical Qualifiers: Hyperlipidemia type: mixed hyperlipidemia Qualified Code(s): E78.2 - Mixed hyperlipidemia Plan: Most recent lipid panel showing borderline high total cholesterol and LDL. She continues with simvastatin 20 mg. Continue working on low-cholesterol diet. Goal LDL is to remain below 130 (2) Hypertension: Code(s): I10 - Essential (primary) hypertension Category: Medical Qualifiers: Hypertension type: essential hypertension Qualified Code(s): I10 - Essential (primary) hypertension Plan: Patient's blood pressure acceptable today in office. Will continue her on her current dose of lisinopril with goal blood pressure to remain below 140/90 (3) Class 3 obesity: Code(s): E66.813 - Obesity, class 3 Category: Medical Plan: As per HPI patient's BMI is 42. She will work on being more physically active and adapt to better eating habits to reduce her weight (4) Carpal tunnel syndrome of right wrist: Code(s): G56.01 - Carpal tunnel syndrome, right upper limb Category: Medical Plan: Patient is status post left carpal tunnel release surgery and doing well. She is anticipating right hand surgery in near future. Orders: Orders Pneumococcal 20 Immunization 01/21/24 Z23 - Encounter for immunization Microalbumin, Random (w Creat) 6 Months R80.9 - Proteinuria, unspecified Comprehensive [place]. Panel Fast 6 Months I10 - Essential (primary) hypertension Complete Blood Count no Diff 6 Months I10 - Essential (primary) hypertension Lipid Panel 6 Months E78.2 - Mixed hyperlipidemia Influenza [id number] Immunization 01/21/24 Z23 - Encounter for immunization
[2024-01-21 09:51] VITALS: BP 102/58; PULSE 68; O2SAT 95; BMI 42.7
[2024-01-21 10:09] VITALS: BP 122/62
== END 2024-01-21 11:59 | disposition home or self-care (01) ==
PROVIDERS: PCP Physician Assistant; Visit Provider Physician Assistant
DX: E78.2 Mixed hyperlipidemia (principal); I10 Essential (primary) hypertension; E66.813 Obesity, class 3; Z68.41 Body mass index [BMI] 40.0-44.9, adult; G56.01 Carpal tunnel syndrome, right upper limb

== ENCOUNTER → 2024-01-21 09:25 | Outpatient (BNVA) | payer MEDICARE, OTHER, SELFPAY | PROVIDERS: PCP Physician Assistant; Visit Provider Physician Assistant | DX: Z23 Encounter for immunization (principal); E78.2 Mixed hyperlipidemia; I10 Essential (primary) hypertension; G56.01 Carpal tunnel syndrome, right upper limb; E66.813 Obesity, class 3; Z68.42 Body mass index [BMI] 45.0-49.9, adult; Z71.3 Dietary counseling and surveillance | CPT/HCPCS: 90471; 90677; 99212 ==

== ENCOUNTER 2024-09-14 08:37 | Outpatient (REF) | payer MEDICARE, OTHER, SELFPAY ==
--- OUTSIDE RECORDS SUMMARY | 2020-03-10 19:02 | XMS_ITS | Encounter Summary ---
Author Organization [facility] Address [address] [place] [phone] Phone Care Team Providers Care Veneer Grader Name Role Phone Mark Ribeiro Primary Care Provider + Encounter Details Date Type Department Care Team (Late st Contact Info) Description 03/10/2020 6:02 PM [facility] Hospital Encounter [facility] [address] [place] [phone] Capri Velez FNP [address] [place] [phone] [email or web address] Social History Tobacco Use Types Packs/Day [...] left humerus at thesurgical neck. 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 It is not the complete legal health record.[facility]
--- OUTSIDE RECORDS SUMMARY | 2024-09-14 09:00 | XMS_ITS | Clinical Summary ---
Author Organization [employer] Address [address] [place] [address] [address] [place] [address] Care Team Providers Care Chief Orthoptist Name Role Phone Unavailable Primary Care Provider Unavailabl e Immunizations Immunization Administration Dates Next Due Influenza, seasonal, injectable, preservative fr ee 10/30/2023 Social History Tobacco Use Types Packs/Day Years Used Date Smoking Tobacco: Never Assessed Comments Unknown Sex and Gender Information Value Date Recorded Sex Assigned at Female 11/05/2023 3:13 PM EDT Legal Sex Female 3:49 PM EDT Gender Identity Female 11/05/2023 3:13 PM EDT Sexual Orientation Straight 11/05/2023 3: 14 PM EDT Plan of Treatment Health Maintenance Due Date Last Done Comments Depression Screening 1935 SDOH Screening 1935 Alcohol/Substance Use Screening 1948 Tobacco Screening 1947 Zoster Vaccines (1 of 2) 01/04/1986 RSV Patients and Patients Aged 60 years or older (1 - 1-dose 75+ series) 01/04/2011 COVID-19 Vaccine ( season) 2023 07/03/2021, 01/12/2021, 04/13/2020, Additional history exists Influenza Vaccine (#1) 2024 , 12/20/2022, 11/01/2021, Additional history exists DTaP/Tdap/Td Vaccines (3 - Td or Tdap) 01/01/2028 12/31/2017, 10/06/2014 Pneumococcal Vaccine: 50+ Years Completed 12/12/2017, 11/30/2016, 11/04/2016, Additional history exists HIB Vaccines Aged Out No longer eligi ble based on patient's age to complete this topic HPV Vaccines Aged Out No longer eligi ble based on patient's age to complete this topic Hepatitis A Vaccines Aged Out No long er eligible based on patient's age to complete this topic Hepatitis B Vaccines Aged Out No long er eligible based on patient's age to complete this topic IPV Vaccines Aged Out No longer eligi ble based on patient's age to complete this topic Meningococcal B Vaccine Aged Out No l onger eligible based on patient's age to complete this topic Meningococcal Vaccine Aged Out No rome linda eligible based on patient's age to complete this topic RSV under 20 months Aged Out No longe r eligible based on patient's age to complete this topic Rotavirus Vaccines Aged Out No longer eligible based on patient's age to complete this topic Insurance [facility] MEDICARE SUPPLEMENT MEDICARE
== END 2024-09-14 08:38 | disposition home or self-care (01) ==
LOC: HO.MAMMO 08:37
PROVIDERS: PCP Physician Assistant; Visit Provider Physician Assistant
DX: Z12.31 Encounter for screening mammogram for malignant neoplasm of breast (principal)
CPT/HCPCS: 77063; 77067

== ENCOUNTER → 2024-09-14 08:45 | Outpatient (BNV) | payer MEDICARE, OTHER, SELFPAY | PROVIDERS: PCP Physician Assistant; Visit Provider Internal Medicine | DX: Z12.31 Encounter for screening mammogram for malignant neoplasm of breast (principal) | CPT/HCPCS: 77063; 77067 ==

== ENCOUNTER 2024-09-25 07:58 | Outpatient (REF) | payer MEDICARE, OTHER, SELFPAY ==
--- OUTSIDE RECORDS SUMMARY | 2020-03-10 19:02 | XMS_ITS | Encounter Summary ---
Author Organization [facility] Address [address] [place] [phone] Phone Care Team Providers Care Assistant Auto Center Manager Name Role Phone Mark Ribeiro Primary Care Provider + Encounter Details Date Type Department Care Team (Late st Contact Info) Description 03/10/2020 6:02 PM [facility] Hospital Encounter [facility] [address] [place] [phone] Capri Velez FNP [address] [place] [phone] [email or web address] Social History Tobacco Use Types Packs/Day Years Used Date Smoking Tobacco: Never Smokeless Tobacco: Never Alcohol Use Standard Drinks/Week Comments Not Currently 0 (1 standard drink = 0.6 oz pur e alcohol) Education Answer Date Recorded Are you interested in more education? Not on garima e 06/08/2022 Are you concerned about learning? Not on file 06/08/2022 No 06/08/2022 No 06/08/2022 Digital Access Answer Date Recorded No 07/07/2022 No 07/07/2022 No 07/07/2022 Reliable internet access at home? Not on file 07/07/2022 Device with a working camera? Not on file Comments Unknown Sex and Gender Information Value Date Recorded Sex Assigned at Not on file Legal Sex Female 10:14 PM EDT Gender Identity Not on file Sexual Orientation Not on file documented as of this encounter Plan of Treatment Not on file documented as of this encounter Procedures Procedure Name Priority Date/Time Associated Diagnosis Comments XR HUMERUS (LEFT) Urgent/patient waiting 03/10/2020 6:08 PM EST Fall, initial encounter documented in this encounter Results * XR Humerus (Left) (03/10/2020 6:08 PM EST) Anatomical Region Laterality Modality Arm Left Computed Radiogr aphy 03/10/2020 6:15 PM EST Impressions 03/10/2020 6:17 PM EST Acute mildly displaced fracture of the proximal left humerus at the surgical neck. Narrative 03/10/2020 6:17 PM EST TECHNIQUE: XR HUMERUS (LEFT) COMPARISON: None. FINDINGS: Diffuse bone demineralization. Mildly displaced acute fracture of the proximal left humerus at the surgical neck with slight impaction. Glenohumeral alignment remains intact. Acromioclavicular joint is intact, with mild hypertrophic change. The distal humerus and visualized portions of the elbow appear intact. Procedure Note Belkys York MD - 03/10/2020 TECHNIQUE: XR HUMERUS (LEFT) COMPARISON: None. FINDINGS: Diffuse bone demineralization. Mildly displaced acute fracture of theproximal left humerus at the surgical neck with slight impaction.Glenohumeral alignment remains intact. Acromioclavicular joint is intact,with mild hypertrophic change. The distal humerus and visualized portionsof the elbow appear intact. IMPRESSION: Acute mildly displaced fracture of the proximal left humerus at thesurgical neck. Capri Velez TALLOW REFINER IMG XR UPPER EXTREMITY Barbra l Result documented in this encounter Visit Diagnoses Not on filedocumented in this encounter Care Teams Assistant Auto Center Manager Relationship Specialty Start Date End Date Mark Ribeiro PA [address] [place] [phone] PCP - General 05/14/19 documented as of this encounter Additional Source Comments The information contained in this document represents components of the legal health record. It is not the complete legal health record.[facility]
--- OUTSIDE RECORDS SUMMARY | 2024-09-25 08:00 | XMS_ITS | Clinical Summary ---
Author Organization [employer] Address [address] [place] [address] [address] [place] [address] Care Team Providers Care Sister Superior Name Role Phone Unavailable Primary Care Provider [...] patient's age to complete this topic Insurance [facility] MEDICARE SUPPLEMENT MEDICARE
[2024-09-25 08:39] LABS: Hematocrit 36.0 % (37.0-47.0); Hemoglobin 12.2 g/dl (12.0-16.0); Mean Corpuscular HGB Conc 33.9 g/dl (31.0-35.0); Mean Corpuscular Hemoglobin 32.4 pg (27.0-33.0); Mean Corpuscular Volume 95.5 fL (80.0-98.0); NRBC Abs Auto 0.000 X10*3/uL (0.0-0.012); NRBC Pct Auto 0.0 /100WBC (0.0-0.2); Platelet Count 172 X10*3/uL (160-400); Red Blood Count 3.77 X10*6/uL (4.20-5.50); White Blood Count 6.9 X10*3/uL (4.8-10.8)
[2024-09-25 09:26] LABS: Alanine Aminotransferase 11 U/L (0-31); Albumin Level 4.0 g/dL (3.5-5.0); Alkaline Phosphatase 59 U/L (39-117); Anion Gap 10 (12-20); Aspartate Amino Transferase 16 U/L (5-31); Blood Urea Nitrogen 29 mg/dL (9-16); Calcium 9.8 mg/dL (8.4-10.2); Carbon Dioxide 25 mmol/L (22-29); Chloride 111 mmol/L (96-108); Cholesterol 207 mg/dL (<200); Estimated Glomerular Filt Rate 44; HDL Cholesterol 40 mg/dL (>40); Potassium 4.4 mmol/L (3.3-5.1); Sodium 142 mmol/L (135-145); Total Protein 6.8 g/dL (6.5-8.0); Triglycerides 147 mg/dL (<150)
[2024-09-25 10:10] LABS: Microalbum/Creatinine Ratio Ur 5.5 ug/mg cr (<30)
== END 2024-09-25 07:59 | disposition home or self-care (01) ==
LOC: HO.LAB 07:58
PROVIDERS: PCP Physician Assistant; Visit Provider Physician Assistant
DX: I10 Essential (primary) hypertension (principal); E78.2 Mixed hyperlipidemia; R80.9 Proteinuria, unspecified
CPT/HCPCS: 36415; 80053; 80061; 82043; 82570; 85027

== ENCOUNTER 2024-11-23 14:55 | Outpatient (AMB) | payer MEDICARE, OTHER, SELFPAY ==
--- OUTSIDE RECORDS SUMMARY | 2020-03-10 19:02 | XMS_ITS | Encounter Summary ---
Author Organization [facility] Address [address] [place] [phone] Phone Care Team Providers Care Rubber Flap Cutter Name Role Phone Mark Ribeiro Primary Care Provider + Encounter Details Date Type Department Care Team (Late st Contact Info) Description 03/10/2020 6:02 PM [facility] Hospital Encounter [facility] [address] [place] [phone] Capri Velez FNP [address] [place] [phone] [email or web address] Social History Tobacco Use Types Packs/Day [...] left humerus at thesurgical neck. 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 It is not the complete legal health record.[facility]
--- OUTSIDE RECORDS SUMMARY | 2020-05-30 10:29 | XMS_ITS | Encounter Summary ---
Author Organization [facility] Address [address] [place] [address] [place] [phone] Phone Care Team Providers Care Maintenance Data Analyst Name Role Phone Mark Ribeiro Primary Care Provider + Encounter Details Date Type Department Care Team (Late st Contact Info) Description 05/30/2020 10:29 AM EDT Hospital Encounter [facility] [address] [place] [address] López Dominguez PA [address] [place] [phone] [email or web address] .or g Social History Tobacco Use Types Packs/Day Years [...] Name Priority Date/Time Associated Diagnosis Comments XR CHEST PA AND LATERAL 2 VIEWS Urgent/patient waiting 05/30/2020 10:38 AM EDT Community acquired pneumonia of left lower lobe of lung documented in this encounter Results * XR CHEST PA AND LATERAL 2 VIEWS (05/30/2020 10:38 AM EDT) Anatomical Region Laterality Modality Chest Computed Radiogr aphy 05/30/2020 10:4 1 AM EDT Impressions 05/30/2020 10:55 AM EDT Mild hazy opacity at the left lateral lung base may represent atelectasis or early pneumonia in the appropriate clinical setting. Remainder of lungs is clear. ATTESTATION: I, Diego Reilly as teaching physician, have reviewed the images for this case and if necessary edited the report originally created by Sumanth Johnson. Narrative 05/30/2020 10:55 AM EDT Reason for exam: Cough, persistent TECHNIQUE: XR CHEST PA AND LATERAL 2 VIEWS COMPARISON: June 09 2019 chest radiograph FINDINGS: Lines/tubes: None. Lungs: Mild hazy opacity at the left lateral lung base may represent atelectasis or early pneumonia in the appropriate clinical setting. Remainder of the lungs is clear. There is no pulmonary edema. Pleura: There is no pleural effusion or pneumothorax. Heart and mediastinum: Unchanged with top normal size heart and mildly tortuous descending thoracic aorta. Bones: Thoracic kyphosis with associated degenerative changes. Procedure Note Angel Reilly MD, MPH - 05/30/2020 Reason for exam: Cough, persistent TECHNIQUE: XR CHEST PA AND LATERAL 2 VIEWS COMPARISON: June 09 2019 chest radiograph FINDINGS: Lines/tubes: None. Lungs: Mild hazy opacity at the left lateral lung base may representatelectasis or early pneumonia in the appropriate clinical setting.Remainder of the lungs is clear. There is no pulmonary edema. Pleura: There is no pleural effusion or pneumothorax. Heart and mediastinum: Unchanged with top normal size heart and mildlytortuous descending thoracic aorta. Bones: Thoracic kyphosis with associated degenerative changes. IMPRESSION: Mild hazy opacity at the left lateral lung base may represent atelectasisor early pneumonia in the appropriate clinical setting. Remainder of lungsis clear. ATTESTATION: I, Diego Reilly as teaching physician, have reviewed theimages for this case and if necessary edited the report originally createdby Sumanth Johnson. López LO IMG XR CHEST Final Resul t documented in this encounter Visit Diagnoses Not on filedocumented in this encounter Care Teams Maintenance Data Analyst Relationship Specialty Start Date End Date Mark Ribeiro PA [address] [place] [address] PCP - General 05/14/19 documented as of this encounter Additional Source Comments The information contained in this document represents components of the legal health record. It is not the complete legal health record.[facility]
--- OUTSIDE RECORDS SUMMARY | 2024-11-23 14:59 | XMS_ITS | Clinical Summary ---
Author Organization [employer] Address [address] [place] [address] [address] [place] [address] Care Team Providers Care Commercial Internship Name Role Phone Unavailable Primary Care Provider [...] 75+ series) 01/04/2011 COVID-19 Vaccine ( season) 2024 07/03/2021, 01/12/2021, 04/13/2020, Additional history exists Influenza [...] patient's age to complete this topic Insurance [facility] MEDICARE SUPPLEMENT MEDICARE Member Subscriber Plan / Payer (Ef fective 2023-Present) Name:Tatiana Bell Member ID:[id number] Relation to Subscriber:Self Name:Tatiana Bell Subscriber ID:[id number] Payer ID:[id number] Group ID:Not on file Type:Medicare Address: [facility] [employer] [facility], [facility]. [address] [place] [address]
--- OUTSIDE RECORDS SUMMARY | 2024-11-23 14:59 | XMS_ITS | Encounter Summary ---
Author Organization [facility] Address [address] [place] [id number] Phone Care Team Providers Care Shredding Machine Tender Name Role Phone Mark Ribeiro Primary Care Provider + Reason for Referral * MRI/CAT Scan - Closed Specialty Diagnoses / Procedures Referred By Contac t Referred To Contact Radiology Diagnoses Pain in right hip Other chronic pain Procedures CT Hip (Right) Mark Ribeiro PA Phone: tel: fax: Referral ID Status Reason Start Date Expiration Date Visits Re quested Visits Authorized [id number] Closed 09/02/2020 09/02/2021 1 1 Encounter Details Date Type Department Care Team (Late st Contact Info) Description 09/02/2020 Transcribe Orders Virtual Department [address] [place] [address] Mark Ribeiro PA [facility] [place] [address] Pain in right hip (Primary Dx); Other chronic pain Social History Tobacco Use Types Packs/Day Years Used Date Smoking Tobacco: Never Smokeless Tobacco: Never Alcohol Use Standard Drinks/Week Comments Not Currently 0 (1 standard drink = 0.6 oz pur e alcohol) Comments Unknown Sex and Gender Information Value Date Recorded Sex Assigned at Not on file Legal Sex Female 10:14 PM EDT Gender Identity Not on file Sexual Orientation Not on file documented as of this encounter Plan of Treatment Not on file documented as of this encounter Results * CT HIP WITHOUT CONTRAST (RIGHT) (09/26/2020 8:57 AM EDT) Anatomical Region Laterality Modality Hip Right Computed Tomogra phy 09/26/2020 9:42 AM EDT Impressions 09/26/2020 9:56 AM EDT 1. Mild bilateral hip osteoarthritis. 2. No acute bony pathology or CT signs of AVN. 3. Incidental right gluteus minimus lipoma. POS - [id number] Narrative 09/26/2020 9:56 AM EDT Nonenhanced exam. No comparison FINDINGS: Relatively mild osteoarthritis is present with joint space narrowing, mostly inferomedial, and small marginal spurs, mostly on the femoral side. This is fairly symmetrical with the left hip. No signs of trauma, tumor or avascular necrosis No significant soft tissue calcifications. Minor degenerative sclerosis incidentally noted in the lower edge of the right SI joint with an anterior bridging osteophyte. Mild degenerative sclerosis in the symphysis pubis as well. There is a focal collection of fat within the upper-anterior aspect of the right gluteus minimus muscle measuring about 2.3 cm transverse by 4.2 cm AP and perhaps is much as 7 cm in length. This is almost certainly a benign lipoma. No other soft tissue mass or fluid collections Procedure Note Checo Espinosa MD - 09/26/2020 Nonenhanced exam. No comparison FINDINGS: Relatively mild osteoarthritis is present with joint space narrowing,mostly inferomedial, and small marginal spurs, mostly on the femoral side.This is fairly symmetrical with the left hip. No signs of trauma, tumor or avascular necrosis No significant soft tissue calcifications. Minor degenerative sclerosis incidentally noted in the lower edge of theright SI joint with an anterior bridging osteophyte. Mild degenerative sclerosis in the symphysis pubis as well. There is a focal collection of fat within the upper-anterior aspect of theright gluteus minimus muscle measuring about 2.3 cm transverse by 4.2 cmAP and perhaps is much as 7 cm in length. This is almost certainly abenign lipoma. No other soft tissue mass or fluid collections IMPRESSION: 1. Mild bilateral hip osteoarthritis. 2. No acute bony pathology or CT signs of AVN. 3. Incidental right gluteus minimus lipoma. POS - [id number] Mark LO IMG CT EXTREMITY Final R esult documented in this encounter Visit Diagnoses Diagnosis Pain in right hip- Primary Other chronic pain Pain in right hip Other chronic pain documented in this encounter Care Teams Shredding Machine Tender Relationship Specialty Start Date End Date Mark Ribeiro PA [address] [place] [address] PCP - General 05/14/19 documented as of this encounter Additional Source Comments The information contained in this document represents components of the legal health record. It is not the complete legal health record.[facility]
--- OUTSIDE RECORDS SUMMARY | 2024-11-23 14:59 | XMS_ITS | Encounter Summary ---
Author Organization [facility] Address [address] [place] [address] Phone Care Team Providers Care Stem Cleaning Machine Feeder Name Role Phone Mark Ribeiro Primary Care Provider + Reason for Referral * MRI/CAT Scan - Closed Specialty Diagnoses / Procedures Referred By Contac t Referred To Contact Radiology Diagnoses Wedge compression fracture of unspecified lumbar vertebra, initial encounter for closed fracture Procedures CT Lumbar Spine Mark Ribeiro PA Phone: tel: fax: Referral ID Status Reason Start Date Expiration Date Visits Re quested Visits Authorized [id number] Closed 03/29/2020 03/29/2021 1 1 Encounter Details Date Type Department Care Team (Late st Contact Info) Description 03/29/2020 Transcribe Orders Virtual Department [address] [place] [address] Mark Ribeiro PA [employer] [facility] [place] [address] Wedge compression fracture of unspecified lumbar vertebra, initial encounter for closed fracture (Primary Dx) Social History Tobacco Use Types Packs/Day Years [...] as of this encounter Results * CT LUMBAR SPINE WITHOUT CONTRAST (04/06/2020 10:20 AM EST) Anatomical Region Laterality Modality L-spine Computed Tomogra phy 04/06/2020 10:3 3 AM EST Narrative 04/06/2020 10:56 AM EST TECHNIQUE: Diagnostic CT LUMBAR SPINE WITHOUT CONTRAST Sagittal and coronal reformatted images were obtained. CLINICAL HISTORY: Left spinal pain status post falling injury in which she sustained left humeral fracture. Point tenderness of left mid back. FINDINGS: There is moderate dextro convex lumbar scoliosis. There are no lumbar vertebral body compression fractures. There are multilevel small anterior paravertebral endplate osteophytes. T12-L1 level: Minimal T12 and L1 vertebral body retrolisthesis and small posterior disc protrusion with mild impression upon the thecal sac. Mild facet arthropathy. L1-L2 level: Minimal L1 on L2 vertebral body retrolisthesis and small broad- based posterior disc protrusion. Mild facet arthropathy. Moderate left and mild right neural foraminal narrowing. L2-L3 level: Small broad-based posterior and slightly right paramedian disc protrusion with moderate compression of the thecal sac. Moderate facet arthropathy with mild central canal stenosis. Protruding disc extends into the inferior aspect of the neural foramina bilaterally. Moderate bilateral neural foraminal narrowing with bilateral encroachment upon exiting L2 nerve roots. L3-L4 level: Small broad-based posterior disc protrusion with mild compression of the thecal sac, extends into the inferior aspect of the neural foramina bilaterally. Moderate facet arthropathy and ligamentum flavum hypertrophy with mild central canal stenosis. Moderate bilateral neural foraminal narrowing with bilateral encroachment upon exiting L3 nerve roots. L4-L5 level: Moderate broad-based posterior disc protrusion with moderate compression of the thecal sac. Moderate facet arthropathy and ligamentum flavum hypertrophy with mild to moderate central canal stenosis and moderate narrowing of lateral recesses. Moderate bilateral neural foraminal narrowing with bilateral encroachment upon exiting L4 nerve roots. Protruding disc extends into the inferior aspect of the neural foramina bilaterally. L5-S1 level: Small broad-based posterior disc protrusion which extends into inferior aspect of the neural foramina. Moderate facet arthropathy without central canal stenosis. Mild right neural foraminal narrowing. No evidence of lumbar spondylolysis. 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 CONCLUSION: Moderate dextroconvex lumbar scoliosis and moderate lumbar spondylosis with multilevel facet arthropathy and small to moderate broad-based posterior disc protrusions.. No evidence of lumbar vertebral body compression fractures or pedicle-posterior element fractures. L2-L3 level: Small posterior and right paramedian disc protrusion. Mild central canal stenosis. Moderate neural foraminal narrowing. L3-L4 level: Small posterior disc protrusion. Mild central canal stenosis. Moderate neural foraminal narrowing. L4-L5 level: Moderate posterior disc protrusion. Mild to moderate central canal stenosis and moderate narrowing of lateral recesses. Moderate neural foraminal narrowing. L5-S1 level: Small posterior disc protrusion. Mild right neural foraminal narrowing. Additional findings, as described. Procedure Note Raymundo Whipple MD - 04/06/2020 TECHNIQUE: Diagnostic CT LUMBAR SPINE WITHOUT CONTRAST Sagittal and coronal reformatted images were obtained. CLINICAL HISTORY: Left spinal pain status post falling injury in which shesustained left humeral fracture. Point tenderness of left mid back. FINDINGS: There is moderate dextro convex lumbar scoliosis. There are no lumbar vertebral body compression fractures. There are multilevel small anterior paravertebral endplate osteophytes. T12-L1 level: Minimal T12 and L1 vertebral body retrolisthesis and smallposterior disc protrusion with mild impression upon the thecal sac. Mildfacet arthropathy. L1-L2 level: Minimal L1 on L2 vertebral body retrolisthesis and smallbroad-based posterior disc protrusion. Mild facet arthropathy. Moderateleft and mild right neural foraminal narrowing. L2-L3 level: Small broad-based posterior and slightly right paramediandisc protrusion with moderate compression of the thecal sac. Moderatefacet arthropathy with mild central canal stenosis. Protruding discextends into the inferior aspect of the neural foramina bilaterally.Moderate bilateral neural foraminal narrowing with bilateral encroachmentupon exiting L2 nerve roots. L3-L4 level: Small broad-based posterior disc protrusion with mildcompression of the thecal sac, extends into the inferior aspect of theneural foramina bilaterally. Moderate facet arthropathy and ligamentumflavum hypertrophy with mild central canal stenosis. Moderate bilateralneural foraminal narrowing with bilateral encroachment upon exiting [id number] roots. L4-L5 level: Moderate broad-based posterior disc protrusion with moderatecompression of the thecal sac. Moderate facet arthropathy and ligamentumflavum hypertrophy with mild to moderate central canal stenosis andmoderate narrowing of lateral recesses. Moderate bilateral neuralforaminal narrowing with bilateral encroachment upon exiting L4 nerveroots. Protruding disc extends into the inferior aspect of the neuralforamina bilaterally. L5-S1 level: Small broad-based posterior disc protrusion which extendsinto inferior aspect of the neural foramina. Moderate facet arthropathywithout central canal stenosis. Mild right neural foraminal narrowing. No evidence of lumbar spondylolysis. 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 CONCLUSION: Moderate dextroconvex lumbar scoliosis and moderate lumbar spondylosiswith multilevel facet arthropathy and small to moderate broad-basedposterior disc protrusions.. No evidence of lumbar vertebral body compression fractures orpedicle-posterior element fractures. L2-L3 level: Small posterior and right paramedian disc protrusion. Mildcentral canal stenosis. Moderate neural foraminal narrowing. L3-L4 level: Small posterior disc protrusion. Mild central canal stenosis.Moderate neural foraminal narrowing. L4-L5 level: Moderate posterior disc protrusion. Mild to moderate centralcanal stenosis and moderate narrowing of lateral recesses. Moderate neuralforaminal narrowing. L5-S1 level: Small posterior disc protrusion. Mild right neural foraminalnarrowing. Additional findings, as described. Mark LO IMG CT XSPECIALTY ORDERA BLES Final Result documented in this encounter Visit Diagnoses Diagnosis Wedge compression fracture of unspecified lumbar vertebra, initial encounter for closed fracture- Primary Wedge compression fracture of unspecified lumbar vertebra, initial encounter for closed fracture documented in this encounter Care Teams Stem Cleaning Machine Feeder Relationship Specialty Start Date End Date Mark Ribeiro PA [address] [place] [id number] PCP - General 05/14/19 documented as of this encounter Additional Source Comments The information contained in this document represents components of the legal health record. It is not the complete legal health record.[facility]
--- OUTSIDE RECORDS SUMMARY | 2024-11-23 14:59 | XMS_ITS | Encounter Summary ---
Author Organization [facility] Address [address] [facility] [address] [place] [address] Phone Care Team Providers Care Skinning Machine Feeder Name Role Phone Mark Ribeiro Primary Care Provider + Encounter Details Date Type Department Care Team (Late st Contact Info) Description 03/29/2020 Procedure Pass [facility], Ct Scan - [address] [address] Social History Tobacco Use Types Packs/Day Years [...] on file documented as of this encounter Visit Diagnoses Not on filedocumented in this encounter Care Teams Skinning Machine Feeder Relationship Specialty Start Date End Date Mark Ribeiro PA [address] [place] [id number] PCP - General 05/14/19 documented as of this encounter Additional Source Comments The information contained in this document represents components of the legal health record. It is not the complete legal health record.[facility]
--- OUTSIDE RECORDS SUMMARY | 2024-11-23 14:59 | XMS_ITS | Encounter Summary ---
Author Organization [facility] Address [address] [facility] [address] [place] [address] Phone Care Team Providers Care Psychiatry Adult Physician Name Role Phone Mark Ribeiro Primary Care Provider + Encounter Details Date Type Department Care Team (Late st Contact Info) Description 09/02/2020 Procedure Pass [facility], Ct Scan - [address] [address] Social History Tobacco Use Types Packs/Day Years [...] on filedocumented in this encounter Care Teams Psychiatry Adult Physician Relationship Specialty [place] [address] [place] [id number] PCP - General 05/14/19 documented as of this encounter Additional Source Comments The information contained in this document represents components of the legal health record. It is not the complete legal health record.[facility]
--- OUTSIDE RECORDS SUMMARY | 2024-11-23 14:59 | XMS_ITS | Encounter Summary ---
Author Organization [facility] Address [address] [place] [address] Phone Care Team Providers Care Suspender Cutter Name Role Phone Mark Ribeiro Primary Care Provider + Encounter Details Date Type Department Care Team (Late st Contact Info) Description 07/08/2020 Ancillary Orders [facility], X-Ray - [address] [address] Brayan Chan MD [address] [place] [address] [place] [address] Other nonspecific abnormal finding of lung field Social History Tobacco Use Types Packs/Day Years [...] documented as of this encounter Results * XR CHEST PA AND LATERAL 2 VIEWS (07/12/2020 1:36 PM EDT) Anatomical Region Laterality Modality Chest Computed Radiogr aphy 07/12/2020 1:39 PM EDT Impressions 07/12/2020 1:41 PM EDT No acute cardiopulmonary abnormalities detected. No definite infiltrate is seen Narrative 07/12/2020 1:41 PM EDT PA and lateral views of the chest obtained. Several prior, most recent May 30, 2020. Improved aeration at the left lung base. Slight flattening hemidiaphragms. No effusions or consolidation identified. Very tortuous aorta again noted with spurring in the thoracic spine. No compression deformity identified. Procedure Note Randy Voss MD - 07/12/2020 PA and lateral views of the chest obtained. Several prior, most recentMay 30, 2020. Improved aeration at the left lung base. Slight flatteninghemidiaphragms. No effusions or consolidation identified. Very tortuousaorta again noted with spurring in the thoracic spine. No compressiondeformity identified. IMPRESSION: No acute cardiopulmonary abnormalities detected. No definite infiltrate isseen us Brayan Chan MD IMG XR CHEST Final Res ult documented in this encounter Visit Diagnoses Diagnosis Other nonspecific abnormal finding of lung field Other nonspecific abnormal finding of lung field documented in this encounter Care Teams Suspender Cutter Relationship Specialty Start Date End Date Mark Ribeiro PA [address] [place] [address] PCP - General 05/14/19 documented as of this encounter Additional Source Comments The information contained in this document represents components of the legal health record. It is not the complete legal health record.[facility]
--- OUTSIDE RECORDS SUMMARY | 2024-11-23 14:59 | XMS_ITS | Encounter Summary ---
Author Organization [facility] Address [address] [facility] [address] [place] [address] Phone Care Team Providers Care Vehicle Insurance Agent Name Role Phone Mark Ribeiro Primary Care Provider + Encounter Details Date Type Department Care Team (Late st Contact Info) Description 05/14/2019 Ancillary Orders Virtual Department [address] [place] [address] Mark Ribeiro PA [address] [place], [place] [phone] Rib pain on right side Social History Tobacco Use Types Packs/Day Years Used Date Smoking Tobacco: Never Assessed Comments Unknown Sex and Gender Information Value Date Recorded Sex Assigned at Not on file Legal Sex Female 10:14 PM EDT Gender Identity Not on file Sexual Orientation Not on file documented as of this encounter Plan of Treatment Not on file documented as of this encounter Results * XR RIBS 3 OR MORE VIEWS WITH PA CHEST (RIGHT) (06/09/2019 1:47 PM EDT) Anatomical Region Laterality Modality Chest Radiographic Josefina ging 06/09/2019 5:01 PM EDT Impressions 06/09/2019 5:04 PM EDT No displaced rib fractures. No acute process in the chest. POS - [id number] Narrative 06/09/2019 5:04 PM EDT EXAM: XR RIBS 3 OR MORE VIEWS WITH PA CHEST (RIGHT) HISTORY: rt rib pain ro occult rib fx TECHNIQUE: PA view chest, 3 views RIGHT ribs. COMPARISON: None. FINDINGS: Low lung volumes. Tortuous uncoiled thoracic aorta with calcifications along the aortic arch. No displaced rib fracture. No suspicious lytic or blastic rib lesion. Bones are decreased in mineralization. There are multilevel degenerative endplate changes in the imaged spine. Procedure Note Lou Godoy MD - 06/09/2019 EXAM: XR RIBS 3 OR MORE VIEWS WITH PA CHEST (RIGHT) HISTORY: rt rib pain ro occult rib fx TECHNIQUE: PA view chest, 3 views RIGHT ribs. COMPARISON: None. FINDINGS: Low lung volumes. Tortuous uncoiled thoracic aorta with calcificationsalong the aortic arch. No displaced rib fracture. No suspicious lytic orblastic rib lesion. Bones are decreased in mineralization. There are multilevel degenerative endplate changes in the imaged spine. IMPRESSION: No displaced rib fractures. No acute process in the chest. POS - [id number] Mark LO IMG XR CHEST Final Re sult documented in this encounter Visit Diagnoses Diagnosis Rib pain on right side Rib pain on right side documented in this encounter Care Teams Vehicle Insurance Agent Relationship Specialty Start Date End Date Mark Rbieiro PA [address] [place] [id number] PCP - General 05/14/19 documented as of this encounter Additional Source Comments The information contained in this document represents components of the legal health record. It is not the complete legal health record.[facility]
--- OUTSIDE RECORDS SUMMARY | 2024-11-23 14:59 | XMS_ITS | Clinical Summary ---
Author Organization [facility] Address [address] [address] Phone Care Team Providers Care Curator Name Role Phone Mark Ribeiro Primary Care Provider + Allergies No known active allergies Medications lisinopril (PRINIVIL,ZESTR IL) 40 MG tablet Take 40 mg by mouth daily. Active metoprolol succinate (TOPROL-XL) 50 MG 24 hr tablet Take 50 mg by mouth daily. Active simvastatin (ZOCOR) 40 MG tablet Take 40 mg by mouth nightly at bedtime. Active montelukast (SINGULAIR) 10 mg tablet Take 10 mg by mouth nightly at bedtime. Active ascorbic acid, vitamin C, (VITAMIN C) 250 mg Chew Take by mouth daily. Active zinc sulfate (ZINC-220) 220 (50) mg capsule Take 220 mg by mouth daily. Active vitamins A,C,E-zinc-jakob er (PRESERVISION AREDS) 14,320226-200 eptz-pv-soma Cap Take 1 capsule by mouth 2 (two) times a day with meals. Active Active Problems No known active problems Resolved Problems Problem Noted Date Diagnosed Date Resolved Date Closed fracture of proximal end of left humerus 03/26/2020 06/07/2020 Immunizations Immunization Administration Dates Next Due COVID-19 (Pre-12/03) Pfizer Vaccine, mRNA, PF 04/13/2020,03/23/2020 Influenza High-Dose Quadriva lent Preservative Free IM 09/28/2019 Influenza High-Dose Trivalen t Preservative Free IM 11/24/2018,11/30/2017,10/06/2014 Influenza Trivalent Adjuvant ed Preservative free IM 11/04/2016 Pneumococcal conjugate PCV13 12/12/2017,11/08/19 15 Pneumococcal polysaccharide PPSV23 11/30/2016, Td (adult) 5 Lf Tetanus Toxo id, PF, Adsorbed 12/31/2017 Tdap 10/06/2014 Social History Tobacco Use Types Packs/Day Years [...] on file Sexual Orientation Not on file Last Filed Vital Signs Vital Sign Reading Time Taken Comments Blood Pressure 128/78 06/07/2020 2:10 PM EDT Pulse 87 06/07/2020 2:10 PM EDT Temperature 36.8 C (98.2 F) 06/07/2020 2:10 PM EDT Respiratory Rate 18 06/07/2020 2:10 PM EDT Oxygen Saturation 97% 06/07/2020 2:10 PM EDT Inhaled Oxygen Concentration - - Weight 104.8 kg (231 lb) 06/07/2020 2:10 PM EDT Height 160 cm (5' 3 ) 06/07/2020 2:10 PM EDT Body Mass Index 40.92 06/07/2020 2:10 PM EDT Plan of Treatment Health Maintenance Due Date Last Done Comments CREATININE LEVEL 1935 POTASSIUM LEVEL 1935 DEPRESSION SCREENING 1948 ZOSTER VACCINES (1 of 2) 01/04/1986 OSTEOPOROSIS SCREENING INITIAL (ONE-TIME) 01/04/2001 RSV VACCINE (1 - 1-dose 75+ series) 01/04/2011 INFLUENZA VACCINE (#1) 2024 3, 11/01/2021, 10/02/2020, Additional history exists COVID-19 VACCINE ( season) 2024 07/03/2021, 01/12/2021, 04/13/2020, Additional history exists Adult Td,Tdap Booster 01/01/2028 12/31/2017, 015 PNEUMOCOCCAL VACCINES (50+ years) Completed 12/12/2017, 11/30/2016, 11/04/2016, Additional history exists HEPATITIS A VACCINES Aged Out No long er eligible based on patient's age to complete this topic HIB VACCINES Aged Out No longer eligi ble based on patient's age to complete this topic MENINGOCOCCAL VACCINES (ACWY) Aged Out No longer eligible based on patient's age to complete this topic MENINGOCOCCAL VACCINES (B) Aged Out N o longer eligible based on patient's age to complete this topic Medical Devices Not on file Insurance * Guarantor: Tatiana Bell Account Type Relation to Patient Date of Phone Billing Address Personal/Family Self [address] [place] [id number] MEDICARE PART A & B [facility] MEDICARE SUPPLEMENT MEDICARE PART A & B [facility] MEDICARE SUPPLEMENT MEDICARE PART A & B [facility] MEDICARE SUPPLEMENT * Guarantor: Tatiana Bell Account Type Relation to Patient Date of Phone Billing Address Personal/Family Self [address] [place] [phone] MEDICARE PART A & B MEDICARE SUPPLEMENT * Guarantor: Tatiana Bell Account Type Relation to Patient Date of Phone Billing Address Personal/Family Self [address] [place] [phone] MEDICARE PART A & B MEDICARE SUPPLEMENT * Guarantor: Tatiana Bell Account Type Relation to Patient Date of Phone Billing Address Personal/Family Self [address] [place] [phone] MEDICARE PART A & B MEDICARE SUPPLEMENT * Guarantor: Tatiana Bell Account Type Relation to Patient Date of Phone Billing Address Personal/Family Self [address] [place] [phone] MEDICARE PART A & B MEDICARE SUPPLEMENT MEDICARE PART A & B MEDICARE SUPPLEMENT MEDICARE PART A & B [facility] MEDICARE SUPPLEMENT Care Teams Curator Relationship Specialty Start Date End Date Mark Ribeiro PA [facility] [place] [address] PCP - General 05/14/19 Additional Source Comments The information contained in this document represents components of the legal health record. It is not the complete legal health record.[facility]
--- NOTE | 2024-11-23 15:07 | MHC.PC.OV ---
Vital Signs 11/23/24 15:09 Height 5 ft Weight 217 lb 2 oz BMI 42.4 BP 128/68 Blood Pressure Location Lt brachial Position Sitting Pulse 56 Pulse Source Pulse Oximeter Temp 96.9 F Temp Source Temporal Artery Scan Pulse Oximetry (%) 95 Oxygen Delivery Method Room Air Intake Visit Reasons: f/u HLD/ HTN Intake Note: Patient is here to follow up on HTN, HLD. Insurance Follow Up Rep Required: No Patent Prosecution Paralegal: Not Required per policy Accompanied by: Self / Same As Patient Allergies No Known Allergies (No Known Allergies*) Allergy (Verified 11/23/24 15:29) Medication List - Last Reconciled 11/23/24 by Mark Ribeiro PA-C lisinopril 40 mg PO DAILY metoprolol succinate ER 50 mg PO DAILY 90 days montelukast 10 mg PO DAILY simvastatin 20 mg PO DAILY Tobacco use date assessed: 11/23/24 Fall risk assessment: No Falls in past year Last assessed Fall Risk: 11/23/24 Dental Screening Dental Screen Date: 11/23/24 Did you have a dental visit in the last 12 months?: Yes Did you have a dental problem in the last 6 months where you did not have access to dental care?: No Was dental information given to patient?: Patient has dentist HPI f/u HLD/ HTN HPI Details Tatiana is a 89 y/o F here today for f/u visit. Pmhx significant for HLD, COPD, HTN, GERD,? osteoarthritis.. Patient is doing quite remarkable for her age .. Knee osteoarthritis: Patient followed by Orthopedics and has been getting gel injections in her knee though feel they have not quick kicked in yet. She continues to have pain in the lateral medial aspect of her left knee. ? . ? .. ? HTN: Patient blood pressure today in office acceptable. no reports of side effects of her HTN meds. BP acceptable in office today. No CP, Dizziness or headaches reported. ? . ? HLd: She has been managing hyperlipidemia with a statin, noting stable cholesterol levels that remain borderline high at 210 mg/dL, with a slight improvement in LDL levels from 134 mg/dL to 131 mg/dL . .. Class 3 obesity: Patient has found it very difficult to lose weight. She is very physically active and does workouts at a local gym several times a week. Laboratory Tests 06/11/23 01/16/24 01/16/24 09:05 10:12 10:16 RBC 4.14 L Hgb 13.1 BUN Creatinine 1.09 Cholesterol 210 H LDL Cholesterol, C alc 134 H 131 H Urine Microalbumin < 5.0 09/25/24 09/25/24 08:19 08:20 RBC 3.77 L Hgb 12.2 BUN 29 H Creatinine 1.17 Cholesterol 207 H LDL Cholesterol, C alc 138 H Urine Microalbumin 6.0 [facility] Medical History (Updated 11/24/24 @ 07:35 by Mark Ribeiro PA-C) Lumbar compression fracture Surgical History H/O hysterectomy for benign disease History of arthroscopic knee surgery Family History Father No problems noted. Mother Cancer Social History Housing: House Alcohol intake: never Patient Tobacco Use Status: Never used Tobacco e-Cigarette/Vaping Use: Never Used Second Hand Smoke Exposure: No service: No Current occupational status: retired Current occupation: lt handed Cognitive needs: No Hearing needs: No Vision needs: Yes (Glasses) Questionnaire PHQ-9 Over the last 2 weeks, how often have you been bothered by any of the following problems? 1. Little interest or pleasure in doing things: not at all 2. Feeling down, depressed, or hopeless: not at all 3. Trouble falling or staying asleep, or sleeping too much: not at all 4. Feeling tired or having little energy: not at all 5. Poor appetite or overeating: not at all 6. Feeling bad about yourself - or that you are a failure or have let yourself or your family down: not at all 7. Trouble concentrating on things, such as reading the newspaper or watching television: not at all 8. Moving or speaking so slowly that other people could have noticed. Or the opposite - being so fidgety or restless that you have been moving around a lot more than usual: not at all 9. Thoughts that you would be better off or of hurting yourself in some way: not at all Total score: 0 Depression Screening Interpretation: Negative Depression Screening Done: Yes Source: Developed by Drs. Cody Nicole, Star Garcia and colleagues, with an educational david from [employer]. Thrive Questionnaire Date Thrive assessed: 11/23/24 I am a: Patient What is your living situation today?: I have a steady place to live Within the past 12 months, did the food you bought not last and you didn't have the money to get more?: Never true Within the past 12 months, did you worry whether your food would run out before you got money to buy more?: Never true Do you have trouble paying for medicines?: No Do you have trouble getting transportation to medical appointments?: No Do you have trouble paying your heating and electricity bill?: No Do you have trouble taking care of your child, family member or friend?: No Do you have trouble with day-to-day activities such as bathing, preparing meals, shopping, managing finances, etc.?: No Are you currently unemployed and looking for a job?: No Are you interested in more education?: No Please select the resources that you would like help with: None Currently or been in a relationship where the following occur: No concerns reported THRIVE Score: 0 AUDIT C Alcohol Use Questionnaire (AUDIT-C) 1. How often do you have a drink containing alcohol?: Never Total Score: 0 ALONZO-7 AMB Questionnaire ALONZO-7 Date ALONZO - 7 assessed: 11/23/24 Feeling nervous, anxious, or on edge: 0 = Not at all Not being able to stop or control worryin = Not at all Worrying too much about different things: 0 = Not at all Trouble relaxin = Not at all Being so restless that it is hard to sit still: 0 = Not at all Becoming easily annoyed or irritable: 0 = Not at all Feeling afraid as if something awful might happen: 0 = Not at all Total ALONZO-7 score (0-4 normal; 5-9 mild; 10-14 moderate; 15-21 severe): 0 Source: Developed by Tati Sorenson Kurt Kroenke and colleagues, with an educational david from [employer]. Review of Systems Const Denies headache(s) Eyes Denies loss of vision ENT Denies vertigo, Denies dizziness, Denies headache(s) and Denies sore throat Card Denies chest pain, Denies leg edema and Denies lightheadedness Resp Denies cough, Denies hemoptysis and Denies wheezing GI Denies abdominal pain, Denies melena, Denies constipation, Denies diarrhea and Denies vomiting Denies urinary frequency, Denies dysuria and Denies urinary urgency Musc Denies arthralgias, Denies joint swelling, Denies numbness and Denies tingling Neuro Denies Abnormal speech present, Denies behavioral changes, Denies vertigo, Denies dizziness, Denies headache(s), Denies loss of vision, Denies memory loss, Denies numbness and Denies tingling Psych Denies anxiety, Denies behavioral changes, Denies depression, Denies memory loss and Denies panic attacks Von/Lymph Denies easy bleeding and Denies easy bruising Aller/Immun Denies wheezing Physical exam (Primary Care) Vital Signs: Last Vital Signs Temp 96.9 F 11/23/24 15:09 Pulse 56 11/23/24 15:09 BP 128/68 11/23/24 15:09 Pulse Ox 95 11/23/24 15:09 Oxygen Delivery Method Room Air 11/23/24 15:09 BMI result Body Mass Index 42.4 BMI Assessment/Plan discussion: High BMI High, discussed plan: lifestyle, weight reduction, dietary and physical activity Tobacco/Smoking Status: Tobacco use Status Tobacco use date assessed 11/23/24 11/23/24 15:14 Patient Tobacco Use Status Never used Tobacco 11/23/24 15:14 e-Cigarette/Vaping Use Never Used 11/23/24 15:14 PHQ-9: PHQ-9 Score PHQ-9: Total score 0 11/23/24 16:01 Depression Screening Interpretation: Negative Thrive Assessment: Date of Thrive Assessment Date Thrive assessed 11/23/24 11/23/24 15:14 Currently or been in a relationship where the following occur: No concerns reported Const General: healthy appearing, no acute distress, alert and awake Nutritional Appearance: well nourished Orientation/consciousness: oriented to person, oriented to place and oriented to time HENMT Ears: TM's normal bilaterally General nose exam: Normal nasal mucous membranes and turbinates present Eyes Conjunctivae: conjunctivae normal Sclerae: sclerae normal Pupils: Equal, round and reactive pupils present Neck Neck: Yes no lymphadenopathy and Yes no JVD Thyroid: Thyroid normal Carotids: no bruits Resp Effort & Inspection: normal respiratory effort and not tachypneic Auscultation: no crackles, no rales, no rhonchi and no wheezes Cardio Rate: regular rate Rhythm: regular rhythm Heart sounds: no murmurs and normal S1 and S2 GI Palpation (GI): Soft to palpation, nontender, no hepatomegaly and no splenomegaly Auscultation: normal bowel sounds Skin General skin exam: no rashes or lesions noted and dry skin Neuro General: oriented to person, oriented to place and oriented to time Cranial nerves: Yes Equal, round and reactive pupils present Speech: No Abnormal speech present Gait exam (Neuro): Normal gait present Motor exam (neuro): no tremor noted Extrem Right upper extremity: full ROM Left upper extremity: full ROM Right lower extremity: full ROM; no edema Left lower extremity: full ROM; no edema Psych Mental Status: mental status grossly normal Speech and movement: Normal speech and movement present Affect: normal affect Attitude: cooperative Thought process: Normal thought process present Office Procedures Flu Questionnaire Does the patient have a severe egg allergy?: No Does the patient have severe life threatening allergies?: No Does the patient have a fever or illness today?: No Has the patient ever had Guillain-Carey Syndrome?: No Has the patient ever had any past reaction to a flu shot?: No Immunizations Fluarix [id number] (PF) 45 mcg (15 mcg x 3)/0.5 mL IM syringe Performing Provider: Mark Ribeiro PA-C [facility] [place] [facility] Administered by: Leti Valdez LPN on 11/23/24 16:01 Dose Route Admin Location Dispensed Lot Number Expiration Date [facility] Ball Worker 0.5 mL IM Left Deltoid 0.5 mL [id number] 08/10/25 [id number] [place] VIS Given Date VIS Provided VIS Publication Date 11/23/24 Single Vaccine 24 Eligibility Eligibility Date Funding Source Not [facility] Eligible 11/23/24 Private Coding Level of Care Code Est Pt Level 4 (32692) Diagnoses Mixed hyperlipidemia E78.2 Hyperlipidemia type: mixed hyperlipidemia Essential hypertension I10 Hypertension type: essential hypertension Class 3 obesity E66.813 Assessment & Plan Assessment & Plan (1) Hyperlipidemia: Code(s): E78.5 - Hyperlipidemia, unspecified Category: Medical Qualifiers: Hyperlipidemia type: mixed hyperlipidemia Qualified Code(s): E78.2 - Mixed hyperlipidemia Plan: Most recent lipid panel showing borderline high total cholesterol and LDL. She continues with simvastatin 20 mg. Continue working on low-cholesterol diet. Goal LDL is to remain below 130 (2) Hypertension: Code(s): I10 - Essential (primary) hypertension Category: Medical Qualifiers: Hypertension type: essential hypertension Qualified Code(s): I10 - Essential (primary) hypertension Plan: Patient's blood pressure acceptable today in office. Will continue her on her current dose of lisinopril with goal blood pressure to remain below 140/90 (3) Class 3 obesity: Code(s): E66.813 - Obesity, class 3 Category: Medical Plan: As per HPI patient's BMI is 42. She will work on being more physically active and adapt to better eating habits to reduce her weight Orders: Orders Influenza [id number] Immunization 11/23/24 Z23 - Encounter for immunization Microalbumin, Random (w Creat) 11/23/24 I10 - Essential (primary) hypertension Comprehensive [place]. Panel Fast 11/23/24 I10 - Essential (primary) hypertension Complete Blood Count no Diff 11/23/24 I10 - Essential (primary) hypertension Lipid Panel 11/23/24 E78.2 - Mixed hyperlipidemia Medications: Refilled montelukast 10 mg PO DAILY 90 tabs 3RF J41.0 - Simple chronic bronchitis Patient Instructions: Goal: Blood pressure to remain below 140/90, LDL to remain below 130 Barriers: Adherence to physical activity and healthy eating habits
[2024-11-23 15:09] VITALS: BP 128/68; PULSE 56; TEMP 36.1; O2SAT 95; BMI 42.4
== END 2024-11-23 16:51 | disposition home or self-care (01) ==
LOC: HO.HMCH 14:56
PROVIDERS: PCP Physician Assistant; Visit Provider Physician Assistant
DX: Z23 Encounter for immunization (principal)

== ENCOUNTER → 2024-11-23 14:55 | Outpatient (BNVA) | payer MEDICARE, OTHER, SELFPAY | PROVIDERS: PCP Physician Assistant; Visit Provider Physician Assistant | DX: I10 Essential (primary) hypertension (principal); J44.9 Chronic obstructive pulmonary disease, unspecified; K21.9 Gastro-esophageal reflux disease without esophagitis; M17.12 Unilateral primary osteoarthritis, left knee; E78.2 Mixed hyperlipidemia; E66.813 Obesity, class 3; J41.0 Simple chronic bronchitis; Z68.41 Body mass index [BMI] 40.0-44.9, adult; Z23 Encounter for immunization | CPT/HCPCS: 90471; 90656; 96127; 99212 ==